=== PATIENT | male | born 1950 | race Caucasian/White ===

== ENCOUNTER → 2017-06-16 | Outpatient (CLI) | payer OTHER ==
[~2017-06-16] MED LIST: ACET325T96 PO; ASPEC81 PO; CLR10 PO; FLUT0.15; NTRGSL4 SL; PLV75 PO; PRT40 PO; TPRSR50 PO
[2017-06-16 09:50] LABS: CHOLESTEROL/HDL RATIO 3.4
== END | disposition home or self-care (01) ==
LOC: C.LAB1850 07:06
PROVIDERS: ATTEND Physician Assistant Medical
DX: I25.10 Atherosclerotic heart disease of native coronary artery without angina pectoris (principal)

== ENCOUNTER 2018-03-14 10:41 | Emergency (ER) | payer OTHER ==
[~2018-03-14] VITALS: Ht 170.2 cm; Wt 80.0 kg
[~2018-03-14 10:41] MED LIST changes: +ACET-1693 PO; -ACET325T96 PO; -ASPEC81 PO; +ASPI-320 PO; +PANT1TAB4 PO; -PRT40 PO
[2018-03-14 10:47] VITALS: TEMP 36.7; Ht 170.2 cm; Wt 80.0 kg
[2018-03-14 11:11] VITALS: O2SAT 96
[2018-03-14] MEDS ORDERED: MECLIZINE HCL 25 MG TAB PO STA (11:25)
[2018-03-14] MEDS ORDERED: ONDANSETRON INJ 2 MG/ML 2 ML VIAL IV STA (11:28)
[2018-03-14] MEDS ORDERED: SODIUM CHLORIDE 0.9% 500ML 500 ML IV STA (11:28)
[2018-03-14 11:31] LABS: BASO % 0.7 %; BASO ABS # 0.04 K/uL (0-0.2); EOS % 1.6 %; HEMOGLOBIN 14.5 g/dL (14.0-18.0); IG# 0.02 K/uL (0.00-0.02); LYMPH % 29.6 %; LYMPH ABS # 1.82 K/uL (1.2-3.4); MEAN CELL VOLUME 95.1 fL (80-100); MEAN CORPUSCULAR HEMOGLOBIN 32.1 pg (25-34); MEAN CORPUSCULAR HGB CONC 33.7 g/dl (32-36); MEAN PLATELET VOLUME 9.7 fL (7.4-10.4); MONO % 8.5 %; MONO ABS # 0.52 K/uL (0.11-0.59); NEUT % 59.3 %; NEUT ABS # 3.64 K/uL (1.4-6.5); PLATELET COUNT 227 K/uL (130-400); RED CELL DISTRIBUTION WIDTH CV 12.5 % (11.5-14.5); RED CELL DISTRIBUTION WIDTH SD 42.8 fL (36.4-46.3); WHITE BLOOD COUNT 6.14 K/uL (4.8-10.8)
--- NOTE | 2018-03-14 11:32 | EMERGENCY ROOM VISIT NOTE ---
History Report prepared by Gerhard: Gisella Ibarra Under the Supervision of: Dr. Elda Wright M.D. First contact with patient: 11:20 Chief Complaint: DIZZY Stated Complaint: DIZZINESS Nursing Triage Summary: pt recently hme from vacation, went back to work had brief cp, heart "fluttering and dizziness. called pcp, med changes done.today coming in to visit someone and had severe dizziness with nausea. pt worse with any position chnge, ears ringing. when standing became "hot" with increased dizziness and nausea. skin pale and clammy History of Present Illness The patient is a 67 year old male who presents to the Emergency Room with complaints of dizziness beginning shortly prior to arrival. The patient states that he felt like the car was still moving when it had stopped. The patient also reports feeling light-headed. He reports that he was here in the hospital to visit family and that he had to hold onto the railing walking down the hallway. Per , the patient's face was also red. The patient reports having some chest pain and nausea but denies being short of breath. He states that he called off of work 5 days ago because he was having palpitations. Per , the patient had a heart attack 4 years ago. The patient denies a history of atrial fibrillation. The patient states that his Metoprolol was increased 2 days ago from 1 tablet to 1.5 tablets as this was thought to help with the patient's palpitations. He states that he took all of his medications this morning and states that he ate breakfast. 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 His states that their daughter has vertigo. Per , the patient's blood pressure is usually not this high. The patient reports that he has not had his blood pressure checked in several months. Source of History: patient, spouse/significant other Onset: shortly prior to arrival Position: other (generalized) Quality: other (dizziness) Associated Symptoms: + chest pain, + nausea, + weakness (light-headed), No SOB Review of Systems See HPI for pertinent positives & negatives. A total of 10 systems reviewed and were otherwise negative. Past Medical & Surgical Medical Problems: (1) Avulsion of skin of finger (2) Diverticulitis Colon (W/O Ment Of Hemorrhage) (3) Diverticulosis Colon (W/O Ment Of Hemorrhage) (4) Esophageal Reflux (5) Meniscus tear (6) Palpitations (7) STEMI (ST elevation myocardial infarction) Family History Heart disease Vertigo Social History Smoking Status: Former Smoker Marital Status: Housing Status: lives with significant other Occupation Status: employed Current/Historical Medications Scheduled Aspirin (Aspirin EC Low Dose), 81 MG PO QAM Clopidogrel (Plavix), 75 MG PO DAILY Fluticasone Propionate (Nasal) (Flonase Allergy Relief), 2 SPRAYS NA HS Metoprolol Succinate (Toprol Xl), 75 MG PO DAILY Pantoprazole (Pantoprazole Sodium), 40 MG PO DAILY Scheduled PRN Acetaminophen Tab (Tylenol), 325 MG PO Q8H PRN for Pain or Fever Nitroglycerin (Nitrostat), 0.4 MG SL UD PRN for Chest Pain Allergies Coded Allergies: Sulfa Antibiotics (Verified Allergy, Intermediate, RASH, 03/14/18) Physical Exam Vital Signs Date Time Temp Pulse Resp B/P (MAP) Pulse Ox O2 Delivery O2 Flow Rate FiO2 03/14/18 15:34 50 19 134/78 99 Room Air 03/14/18 13:55 152/73 03/14/18 13:15 52 03/14/18 13:11 48 14 99 03/14/18 12:41 49 16 99 03/14/18 12:11 55 12 96 03/14/18 12:07 56 19 138/85 97 03/14/18 12:05 138/85 03/14/18 11:41 61 16 96 03/14/18 11:26 174/109 03/14/18 11:11 96 Room Air 03/14/18 11:11 64 148/102 67 171/116 65 176/103 03/14/18 11:11 61 96 03/14/18 11:05 176/103 03/14/18 11:04 171/116 03/14/18 11:03 148/102 03/14/18 11:01 58 03/14/18 10:47 36.7 69 18 163/96 97 Room Air Physical Exam Vital signs reviewed. General: Well-appearing male, in no significant distress. HEENT: No scleral icterus, PERRLA, neck supple. Atraumatic. Horizontal nystagmus. Cardiovascular: Regular rate and rhythm, no extra sounds. Pulmonary: Clear to auscultation bilaterally, normal work of breathing. Abdomen: Soft, nontender, nondistended, positive bowel sounds. Musculoskeletal: Atraumatic, no peripheral edema. Neurologic: Patient awake alert and oriented x 3, full strength in all 4 extremities. Cranial nerves 2 through 12 grossly intact. Skin: Warm, dry, no rash Medical Decision & Procedures ER Provider Diagnostic Interpretation: Radiology results as stated below per my review and radiologist interpretation: CHEST ONE VIEW PORTABLE CLINICAL HISTORY: Dizziness. COMPARISON STUDY: Chest radiograph June 25, 2015. FINDINGS: Patient is rotated. No pneumothorax or pleural effusion is noted. There is no consolidation or evidence for pulmonary edema. Cardiac size is within normal limits. IMPRESSION: No acute cardiopulmonary findings. Electronically signed by: Terry Hernandez M.D. 03/14/2018 11:52 AM Dictated Date/Time: 03/14/2018 11:[address] OF THE HEAD WITHOUT CONTRAST CLINICAL HISTORY: Dizziness. Difficulty ambulating. COMPARISON STUDY: No previous studies for comparison. CT DOSE: 537.48 mGy.cm TECHNIQUE: Helical axial images of the head were obtained without IV contrast. Automated exposure control was utilized for the study. A dose lowering technique was utilized adhering to the principles of ALARA. FINDINGS: No acute intracranial hemorrhage, midline shift or mass effect is present. Brain volume is normal. Ventricular system is normal. The basilar cisterns are patent. There are no extra-axial collections. Boyd-white differentiation is maintained. There are no findings to suggest acute dural sinus thrombosis or acute territorial infarct. There are no significant calvarial abnormalities. Visualized portions of the mastoid air cells and sinuses are clear. IMPRESSION: No acute intracranial findings. Electronically signed by: Terry Hernandez M.D. 03/14/2018 1:46 PM Dictated Date/Time: 03/14/2018 1:44 PM Laboratory Results 03/14/18 11:15 Red Blood Count 4.52, Mean Corpuscular Volume 95.1, Mean Corpuscular Hemoglobin 32.1, Mean Corpuscular Hemoglobin Concent 33.7, Mean Platelet Volume 9.7, Neutrophils (%) (Auto) 59.3, Lymphocytes (%) (Auto) 29.6, Monocytes (%) (Auto) 8.5, Eosinophils (%) (Auto) 1.6, Basophils (%) (Auto) 0.7, Neutrophils # (Auto) 3.64, Lymphocytes # (Auto) 1.82, Monocytes # (Auto) 0.52, Eosinophils # (Auto) 0.10, Basophils # (Auto) 0.04 03/14/18 11:15 Test 03/14/18 11:10 03/14/18 11:15 03/14/18 11:27 03/14/18 13:50 Bedside Glucose 125 mg/dl (70-99) White Blood Count 6.14 K/uL (4.8-10.8) Red Blood Count 4.52 M/uL (4.7-6.1) Hemoglobin 14.5 g/dL (14.0-18.0) Hematocrit 43.0 % (42-52) Mean Corpuscular Volume 95.1 fL (80-100) Mean Corpuscular Hemoglobin 32.1 pg (25-34) Mean Corpuscular Hemoglobin Concent 33.7 g/dl (32-36) Platelet Count 227 K/uL (130-400) Mean Platelet Volume 9.7 fL (7.4-10.4) Neutrophils (%) (Auto) 59.3 % Lymphocytes (%) (Auto) 29.6 % Monocytes (%) (Auto) 8.5 % Eosinophils (%) (Auto) 1.6 % Basophils (%) (Auto) 0.7 % Neutrophils # (Auto) 3.64 K/uL (1.4-6.5) Lymphocytes # (Auto) 1.82 K/uL (1.2-3.4) Monocytes # (Auto) 0.52 K/uL (0.11-0.59) Eosinophils # (Auto) 0.10 K/uL (0-0.5) Basophils # (Auto) 0.04 K/uL (0-0.2) RDW Standard Deviation 42.8 fL (36.4-46.3) RDW Coefficient of Variation 12.5 % (11.5-14.5) Immature Granulocyte % (Auto) 0.3 % Immature Granulocyte # (Auto) 0.02 K/uL (0.00-0.02) Anion Gap 8.0 mmol/L (3-11) Est Creatinine Clear Calc Drug Dose 97.0 ml/min Estimated GFR () 110.4 Estimated GFR (Non- 95.2 BUN/Creatinine Ratio 16.9 (10-20) Calcium Level 8.6 mg/dl (8.5-10.1) Magnesium Level 2.3 mg/dl (1.8-2.4) Total Bilirubin 0.7 mg/dl (0.2-1) Aspartate Amino Transf (AST/SGOT) 24 U/L (15-37) Alanine Aminotransferase (ALT/SGPT) 25 U/L (12-78) Alkaline Phosphatase 102 U/L (45-117) Total Creatine Kinase 147 U/L (39-308) Creatine Kinase MB 2.8 ng/ml (0.5-3.6) Creatine Kinase MB Ratio 1.9 (0-3.0) Total Protein 7.3 gm/dl (6.4-8.2) Albumin 3.8 gm/dl (3.4-5.0) Globulin 3.5 gm/dl (2.5-4.0) Albumin/Globulin Ratio 1.1 (0.9-2) Thyroid Stimulating Hormone (TSH) 0.901 uIu/ml (0.300-4.500) Bedside Troponin I < 0.030 ng/ml (0-0.045) Urine Color YELLOW Urine Appearance CLEAR (CLEAR) Urine pH 5.5 (4.5-7.5) Urine Specific [place] 1.019 (1.000-1.030) Urine Protein NEG (NEG) Urine Glucose (UA) NEG (NEG) Urine Ketones NEG (NEG) Urine Occult Blood NEG (NEG) Urine Nitrite NEG (NEG) Urine Bilirubin NEG (NEG) Urine Urobilinogen NEG (NEG) Urine Leukocyte Esterase NEG (NEG) Urine WBC (Auto) 1-5 /hpf (0-5) Urine RBC (Auto) 0-4 /hpf (0-4) Urine Hyaline Casts (Auto) 1-5 /lpf (0-5) Urine Epithelial Cells (Auto) 10-20 /lpf (0-5) Urine Bacteria (Auto) NEG (NEG) Laboratory results per my review. Medications Administered Medications (Trade) Dose Ordered Sig/Ildefonso Route Start Time Stop Time Status Last Admin Dose Admin Meclizine HCl (Antivert Tab) 25 mg NOW STAT PO 03/14/18 11:25 03/14/18 11:28 DC 03/14/18 12:05 25 MG Ondansetron HCl (Zofran Inj) 4 mg NOW STAT IV 03/14/18 11:28 8/12/18 11:29 DC 03/14/18 12:05 4 MG Sodium Chloride 500 ml @ 999 mls/hr Q31M STAT IV 03/14/18 11:28 03/14/18 11:58 DC 03/14/18 12:05 999 MLS/HR Meclizine HCl (Antivert 25MG Home Pack) 1 homepack UD ONCE PO 03/14/18 15:15 03/14/18 15:16 DC 03/14/18 15:33 1 HOMEPACK ECG Per My Interpretation Indication: chest pain Rate (beats per minute): 61 Rhythm: normal sinus Findings: LAFB, PVC, RBBB, no acute ischemic change, other (previous inferior infarct) ED Course 1123: Past medical records reviewed. The patient was evaluated in room C12B. A complete history and physical examination was performed. 1435: I updated the patient on his results. 1505: Upon reevaluation, the patient appeared to have improvement of his symptoms. I discussed findings with him. He verbalized agreement of the treatment plan. He was discharged home. Medical Decision Differential diagnosis: Etiologies such as benign positional vertigo, dehydration, hypovolemia, anemia, tumor, infection, hypoglycemia, electrolyte abnormalities, cardiac sources, intracerebral event, toxicologic, neurologic, as well as others were entertained. This patient was evaluated and appeared to be in no significant distress. IV access was obtained and laboratory work was drawn. Patient was given meclizine 25 mg p.o. Zofran 4 mg IV and IV hydration. Chest x-ray was performed and reveals no evidence of acute abnormality. CT scan of the head was performed and is negative for acute intracranial abnormality. Patient was observed for several hours in the emergency department. He was feeling much improved. He was discharged with a home pack for meclizine. He was advised to monitor his blood pressure and follow-up with his PCP regarding the vertigo and hypertension. He will return to the ER for worsening of symptoms or any medical concerns. Medication Reconcilliation Current Medication List: was personally reviewed by me Blood Pressure Screening Patient's blood pressure: Elevated blood pressure Blood pressure disposition: Referred to PCP Impression Primary Impression: Benign positional vertigo Scribe Attestation The scribe's documentation has been prepared under my direction and personally reviewed by me in its entirety. I confirm that the note above accurately reflects all work, treatment, procedures, and medical decision making performed by me. Departure Information Dispostion Home / Self-Care Referrals Zion Olivares M.D. (PCP) Nandini Temple M.D. Forms HOME CARE DOCUMENTATION FORM, IMPORTANT VISIT INFORMATION Patient Instructions My [facility], Vertigo Paroxysmal Positional Additional Instructions Diagnosis: Benign positional vertigo Please drink plenty of clear fluids. Meclizine 25 mg every 8 hours as needed for vertiginous symptoms. Monitor your blood pressure. Follow-up with your primary care physician within the next week for reevaluation of your symptoms and blood pressure recheck. Return to the emergency department for worsening of symptoms or any medical concerns.
--- NOTE | 2018-03-14 11:53 | DIAGNOSTIC IMAGING REPORT ---
CHEST ONE VIEW PORTABLE CLINICAL HISTORY: Dizziness. COMPARISON STUDY: Chest radiograph June 25, 2015. FINDINGS: Patient is rotated. No pneumothorax or pleural effusion is noted. There is no consolidation or evidence for pulmonary edema. Cardiac size is within normal limits. IMPRESSION: No acute cardiopulmonary findings. Electronically signed by: Terry Hernandez M.D. 03/14/2018 11:52 AM Dictated Date/Time: 03/14/2018 11:51 AM
[2018-03-14 11:59] LABS: ALBUMIN 3.8 gm/dl (3.4-5.0); CALCIUM 8.6 mg/dl (8.5-10.1); CKMB 2.8 ng/ml (0.5-3.6); CREATININE 0.77 mg/dl (0.60-1.40); POTASSIUM 3.8 mmol/L (3.5-5.1); TOTAL PROTEIN 7.3 gm/dl (6.4-8.2)
[2018-03-14] MEDS ORDERED: CLOP1TAB15 PO (12:02)
[2018-03-14] MEDS ORDERED: METO-217 PO (12:02)
--- NOTE | 2018-03-14 13:47 | DIAGNOSTIC IMAGING REPORT ---
CT OF THE HEAD WITHOUT CONTRAST CLINICAL HISTORY: Dizziness. Difficulty ambulating. COMPARISON STUDY: No previous studies for comparison. CT DOSE: 537.48 mGy.cm TECHNIQUE: Helical axial images of the head were obtained without IV contrast. Automated exposure control was utilized for the study. A dose lowering technique was utilized adhering to the principles of ALARA. FINDINGS: No acute intracranial hemorrhage, midline shift or mass effect is present. Brain volume is normal. Ventricular system is normal. The basilar cisterns are patent. There are no extra-axial collections. Boyd-white differentiation is maintained. There are no findings to suggest acute dural sinus thrombosis or acute territorial infarct. There are no significant calvarial abnormalities. Visualized portions of the mastoid air cells and sinuses are clear. IMPRESSION: No acute intracranial findings. Electronically signed by: Terry Hernandez M.D. 03/14/2018 1:46 PM Dictated Date/Time: 03/14/2018 1:44 PM
[2018-03-14] MEDS ORDERED: MECLIZINE HCL 25MG HOME PACK PO ONE (15:15)
[2018-03-14 15:34] VITALS: BP 134/78; PULSE 50; O2SAT 99
== END 2018-03-14 15:36 | disposition home or self-care (01) ==
LOC: C.EDB 10:42 → C.EDC 15:36
DX: H81.10 Benign paroxysmal vertigo, unspecified ear (principal); K57.92 Diverticulitis of intestine, part unspecified, without perforation or abscess without bleeding; K21.9 Gastro-esophageal reflux disease without esophagitis; I21.3 ST elevation (STEMI) myocardial infarction of unspecified site; Z87.891 Personal history of nicotine dependence; Z88.2 Allergy status to sulfonamides

== ENCOUNTER 2021-10-15 10:55 | Inpatient (IN) ==
[2021-10-15] MEDS ORDERED: NITROGLYCERIN SL 0.4 MG/TAB TAB SL PRN ×2 (11:37→16:36)
[2021-10-15] MEDS ORDERED: ASPIRIN CHEW 324 MG PO STA (11:37)
[2021-10-15 11:46] LABS: Basophils # (auto) 0.03 K/uL (0-0.2); Basophils % (auto) 0.4 %; Eosinophils # (auto) 0.06 K/uL (0-0.5); Eosinophils % (auto) 0.8 %; Hematocrit (blood only) 45.1 % (42-52); Hemoglobin 15.4 g/dL (14.0-18.0); Immature Granulocytes # (auto) 0.01 K/uL (0.00-0.02); Immature Granulocytes % (auto) 0.1 %; Lymphocytes # (auto) 1.94 K/uL (1.2-3.4); Mean Corpuscular Hemoglobin 32.6 pg (25-34); Mean Corpuscular Hgb Conc 34.1 g/dL (32-36); Mean Corpuscular Volume 95.3 fL (80-100); Mean Platelet Volume 10.1 fL (7.4-10.4); Monocytes # (auto) 0.61 K/uL (0.11-0.59); Monocytes % (auto) 7.9 %; Neutrophils % (auto) 65.8 %; Platelet Count 252 K/uL (130-400); RDW Coefficient of Variation 12.6 % (11.5-14.5); RDW Standard Deviation 43.7 fL (36.4-46.3); Red Blood Count 4.73 M/uL (4.7-6.1); White Blood Count 7.75 K/uL (4.8-10.8)
[2021-10-15 12:18] LABS: Troponin I 0.06 ng/ml (0-0.04)
--- NOTE | 2021-10-15 12:19 | XRay Report ---
XR chest 1V portable HISTORY: 71 years-old Male Chest Pain . Acute atypical chest pain COMPARISON: Chest radiograph 03/14/2019 TECHNIQUE: Portable AP view of the chest FINDINGS: Cardiomediastinal and hilar silhouettes are within normal limits. No pneumothorax, pleural effusion, airspace consolidation or overt pulmonary edema. The bones of the chest appear grossly intact. Mid th oracic levoscoliosis. IMPRESSION: No acute process. ACT 112: Negative or not required by law. The above report was generated using voice recognition software. It may contain grammatical, syntax o r spelling errors. Electronically signed by: Osmel Mckeon M.D. 10/15/2021 12:17 PM
[2021-10-15 12:20] LABS: Albumin Globulin Ratio 1.6 (0.9-2); Albumin Level 4.5 gm/dl (3.4-5.0); BUN Creatinine Ratio 18.7 (10-20); Bilirubin,Total 0.8 mg/dl (0.2-1.0); Calcium 9.5 mg/dl (8.5-10.1); Creatinine Clr Calc Pharmacy 86.9 ml/min; Est GFR (African American) 108.5 ml/min; Est GFR (Non-African American) 93.6 ml/min; Globulin 2.9 gm/dl (2.5-4.0); Total Protein 7.4 gm/dl (6.0-8.3)
--- NOTE | 2021-10-15 13:19 | History & Physical Report ---
Date of Service October 15, 2021 Assessment & Plan (1) Chest pain: Plan: - Suspect this is unstable angina, is new for patient and has been on and off for 2 weeks, only with exertion, is alleviated with rest. He has RBBB on EKG which was also seen on EKG in 2018, no ST segment changes, troponin elevated at .06. He currently reports a sense of congestion in his chest, rated 1/10. - Received ASA in ED. Nitropaste ordered PRN if patient becomes symptomatic. - Consult cardiology, appreciate their recommendations. - Continue to trend troponin Q6h. - Will start low dose Heparin with bolus. - Last echo was in 2013, will order this. (2) CAD (coronary artery disease): Plan: - s/p acute inferior and posterior lateral PA in 2013, 3 SHOBHA in RCA. - Continue statin, DAPT (plavix + ASA), metoprolol, amlodipine. (3) Hyperlipidemia: Plan: - Continue pravastatin 5 mg daily and ezetimibe 10 mg daily. (4) Hypertension, essential: Plan: - Continue amlodipine 5 mg daily and metoprolol succ 100 mg daily. (5) Urinary retention due to benign prostatic hyperplasia: Plan: - Continue Flomax .4 mg in evening. (6) Impaired fasting glucose: Plan: - Glucose 113 today on BMP, patient without diagnosis of diabetes. Last A1c in December 2020 = 5.4. Will recheck in AM. - Can consider accucheks ACHS, can consider SSI if sugars consistently elevated. (7) GERD without esophagitis: Plan: - Continue protonix 40 mg daily. Plan: - Admit to [facility] with tele. - SCDs, Lovenox for DVT ppx. - DNR/DNI. History of Present Illness Chief Complaint: chest pain with SOB Primary Care Provider: Nandini Temple MD Patient 71 y/o M with past medical history of CAD s/p PA in 2013 with SHOBHA, hypertension, hyperlipidemia, and hiatal hernia who presents today at the referral of his PCP with several episodes of chest pain and shortness of breath over the past month. He and his walk 2.5 miles several times a week, however for the past month, he notes he has been more short of breath than usual with these walks. He initially attributed this to air quality, as his also experienced similar symptoms, however he has since noticed a decline in energy levels. He also reports feeling slightly short of breath while walking up his stairs this morning. Additionally, over the past two weeks, he has begun experiencing episodes of generalized chest pain with activity, specifically noting it happened once while walking and was associated with chest pain across his whole chest and abdomen, associated with b/l numbness in both arms as well as nausea. It was alleviated with rest, and he was able to continue his walk without further symptoms. Last week, during a snow storm, he was shoveling snow and experienced an episode of chest pain 10 minutes into shoveling, similar to the one listed above. He chewed a baby aspirin and rested for about 20 minutes before continuing to shovel, symptom free. He states this chest pain does not feel similar to the pain he experienced in 2013 when he had an PA, but is concerned as he does not ever have chest pain at rest or activity, and also typically is very active and is bothered by his fatigue. His chest pain does not radiate to neck/jaw/back, is not affected by position, is not exacerbated with respirations, is not associated with meals. He denies fever/chills, myalgias, palpitations, dizziness, SOB at rest, cough, vomiting, change in bowel movements, injury to chest wall, or edema. He is currently without chest pain. Allergies Allergy/AdvReac Type Severity Reaction Status Date / Time Sulfa (Sulfonamide Allergy Intermediate RASH Verified 10/15/21 13:01 Antibiotics) Home Medications Medication Instructions Recorded Confirmed Type nitroglycerin 0.4 mg sublingual 0.4 mg SL Q5M PRN #20 tab 03/24/19 10/15/21 Rx tablet amlodipine 5 mg tablet 5 mg PO QAM 10/15/21 10/15/21 History aspirin 81 mg tablet,delayed 81 mg PO QAM 10/15/21 10/15/21 History release cholecalciferol (vitamin D3) 50 50 mcg PO HS 10/15/21 10/15/21 History mcg (2,000 unit) capsule (Vitamin D3) clopidogrel 75 mg tablet (Plavix) 75 mg PO QAM 10/15/21 10/15/21 History coenzyme Q10 100 mg capsule 100 mg PO QDL 10/15/21 10/15/21 History (CoQ-10) ezetimibe 10 mg tablet 10 mg PO QAM 10/15/21 10/15/21 History metoprolol succinate 100 mg 100 mg PO QAM 10/15/21 10/15/21 History tablet,extended release 24 hr multivitamin 1 tab PO QAM 10/15/21 10/15/21 History pantoprazole 40 mg tablet,delayed 40 mg PO QAM 10/15/21 10/15/21 History release pravastatin 10 mg tablet 5 mg PO QDL 10/15/21 10/15/21 History tamsulosin 0.4 mg capsule (Flomax) 0.4 mg PO HS 10/15/21 10/15/21 History Past Med/Surg History Medical History Avulsion of skin of finger CAD (coronary artery disease) Diverticulosis GERD without esophagitis HTN (hypertension), benign Impaired fasting glucose Insomnia Iron deficiency anemia Meniscus tear Myocardial infarction Palpitations Plantar fasciitis Pneumonia RBBB Routine health maintenance STEMI (ST elevation myocardial infarction) Surgical History (Updated 10/15/21 @ 17:52 by David Jones MD) History of colon surgery Stented coronary artery Family History Mother Hypertension Grandfather Heart disease Father Heart disease Myocardial infarction Grandfather (Paternal) , 49 Myocardial infarction, Onset Age: 49 Uncle Heart disease Denies family history of Ovarian cancer Prostate cancer Breast cancer Colorectal cancer Social History Smoking Status: Never smoker Second Hand Exposure: No; Do You Dip or Chew Tobacco: No; Tobacco Cessation Education Requested by Patient: No Hx Alcohol Use: Yes Alcohol type: beer Alcohol Intake Frequency: Monthly or Less Hx Substance Use: No Preferred Language: Croatian Harnessmaker Required: No Beliefs That Will Affect Care: None marital status: Current Living Situation: Spouse current occupational status: retired Other Information That Helps Us Care for You: No Feels Safe at Home: Yes Safety Concerns: Feels Safe At This Time caffeine: Yes (1 cup of coffee daily ) Dental Care, Regularly: Yes Physical Activity Frequency: Daily Physical Activity Frequency Comment: Walking 2 1/2 miles daily Seatbelt Use: always Sunscreen Use: Yes Assistive Devices: None Review of Systems Review of Systems: Constitutional: Reports generalized fatigue for the past month; No fever, sweats or chills Eyes: No diplopia, no worsening or blurred vision ENT: normal hearing, no trouble swallowing Respiratory: reports intermittent episodes of SOB with activity; No cough, sputum, dyspnea at rest Cardiovascular: reports 2-3 episodes of chest pain with exertion that radiates across whole chest and into abdomen, relieved with rest, without diaphoresis, palpitations, syncope, dizziness Abdomen: Nausea associated with chest pain; no vomiting, diarrhea or constipation Musculoskeletal: No joint pain, calf pain, swelling Neurologic: No weakness, numbness/tingling, or balance problems Psychiatric: No anxiety or depression Skin: No rash or itch Physical Exam Physical Exam: General: awake, alert, no apparent distress Head: Normocephalic, atraumatic ENT: PERRL, EOMI, no pharyngeal exudate, mucous membranes moist Chest: Clear to auscultation, on room air, no adventitious breath sounds Cardiac: Regular rate and rhythm, no murmur, no JVD, normal peripheral pulses, good capillary refill Abdominal: NABS x 4 quadrants, soft, nontender to palpation, no rebound, guarding or tenderness Extremities: Normal inspection, no peripheral edema or erythema, calfs nontender to palpation Psych: Normal mood and affect Neuro: AAO x 3, strength intact bilaterally and rated 5/5, no motor deficits, speech is clear, no peripheral sensory deficits Skin: no rash or erythema Results & Data Results & Data ([facility]) Vital Signs (Past 12 Hours) Vital Signs Temp Pulse Pulse Resp BP BP Pulse Ox 10/15/21 13:00 60 12 142/75 H 98 10/15/21 12:53 96 10/15/21 11:37 63 13 100 10/15/21 11:10 36.5 C 68 18 182/89 H 95 Laboratory Results Abnormal lab results 10/15/21 10/15/21 Range/Units 11:37 11:37 [place] # (Auto) 0.61 H (0.11-0.59) K/uL Glucose 113 H (70-99(Fasting)) mg/dl Troponin I 0.06 H* (0-0.04) ng/ml Diagnostic Findings Chest X-Ray 10/15/21 11:37 XR chest 1V portable HISTORY: 71 years-old Male Chest Pain . Acute atypical chest pain COMPARISON: Chest radiograph 03/14/2019 TECHNIQUE: Portable AP view of the chest FINDINGS: Cardiomediastinal and hilar silhouettes are within normal limits. No pneumothorax, pleural effusion, airspace consolidation or overt pulmonary edema. The bones of the chest appear grossly intact. Mid thoracic levoscoliosis. IMPRESSION: No acute process. ECG Additional Comments: Normal sinus rhythm Indeterminate axis Right bundle branch block Abnormal ECG When compared with ECG of 14-MAR-2018 11:02, Premature ventricular complexes are no longer Present Criteria for Inferior infarct are no longer Present RBBB also present on EKG from 2018. Code Status & VTE Plan Code Status DNR/DNI VTE Prophylaxis Plan VTE Prophylaxis will be ordered: Yes Supervising Physician Co-Signing Physician Notes Attending Attestation & Admission Note: Pt seen/examined, chart reviewed, care plan d/w TAMRA Zuniga. I agree w/ the cody components of her documentation. Pleasant 71yo male s/p acute PA in 2013 2nd occluded RCA. Underwent SHOBHA x 3 at that time. No stress test since as he had been asymptomatic from cardiac standpoint. Multiple episodes of chest pain in the last 1-2 weeks. Exertional in nature. Becoming more frequent of late and less activity is leading to the symptoms. Upon presentation today his troponin was mildly elevated. no chest pain or dyspnea during my assessment. PMH/PSH/allergies/meds/sochx/famhx - reviewed VSS, afebrile gen - NAD, pleasant neck - no JVD heart - RRR, s1 s2, no murmurs lungs - CTA b/l chest - no reproducible chest wall pain to palpation abd - soft NT ND BS+ ext - no edema, pulses 2+ b/l vascular - radial pulses 2+ b/l labs reviewed trop 0.05 (minimally high) EKG - NSR, RBBB (Old), no acute ST changes cxr wnl A/P: 1. chest pain - recurrent - concerning for angina. Cannot exclude unstable angina - symptoms becoming more frequent and being provoked now by mild activity. With his known CAD, symptoms, and +troponin will place on low-dose heparin protocol, tele, and perform serial trops. Formal cards consult with [facility] -- cath in am?? place on topical nitrates scheduled. cont asa/plavix. 2. hyperlipidemia - last LDL in 2020 was <70. cont statin. 3. HTN - cont home meds including beta ani. Teja Goodwin MD PG Care Time/CCT Total # of Minutes Spent Total Time Spent with Patient: Total time spent is greater than 50% in coordination of care (as documented) at patient's floor/unit and/or counseling patient: Coding Level of Care Code 09839 Initial Inpt Care Lvl 3 Diagnoses Chest pain R07.9 CAD (coronary artery disease) I25.10 Hyperlipidemia E78.5 Hypertension, essential I10 Urinary retention due to benign prostatic hyperplasia N40.1; R33.8 Impaired fasting glucose R73.01 GERD without esophagitis K21.9
[2021-10-15] MEDS ORDERED: Heparin IV Adult Wt-Based Low-Dose WITH Bolus Protocol STA (14:23)
[2021-10-15] MEDS ORDERED: HEPARIN SOD (PORCINE) 1000 UNIT/ML IV ONE (14:38)
[2021-10-15] MEDS: HEPARIN SODIUM/DEXTROSE 25,000 UNITS/500 ML BAG IV SCH (14:58)
[2021-10-15 15:06] LABS: Partial Thromboplastin Ratio 0.9; Partial Thromboplastin Time 24.8 Seconds (21.0-31.0)
--- NOTE | 2021-10-15 15:56 | Emergency Department Note ---
ED Provider Note CHIEF COMPLAINT: [] HISTORY OF PRESENT ILLNESS: This [] patient presents to the emergency department [] REVIEW OF SYSTEMS: A review of systems was performed with positives and pertinent negatives listed in the history of present illness. 10 systems were reviewed and are otherwise negative. ALLERGIES: see below MEDICATIONS: see below PMH: see below SOCIAL HISTORY: see below DDx: [] PHYSICAL EXAM: Vital signs reviewed. General: Well-appearing, in no significant distress. HEENT: No scleral icterus, PERRLA, neck supple. Atraumatic. Cardiovascular: Regular rate and rhythm, no extra sounds. Pulmonary: Clear to auscultation bilaterally, normal work of breathing. Abdomen: Soft, nontender, nondistended, positive bowel sounds. Musculoskeletal: Atraumatic, no peripheral edema. Neurologic: Patient awake alert and oriented x 3, speech is clear Skin: Warm, dry, no rash EMERGENCY DEPARTMENT COURSE/MDM: [] MONITORING: An order for cardiac monitoring was placed and the patient is noted to be in a [] at [] beats per minute. RADIOLOGY: EKG: DISPOSITION: Past Med/Surg History Medical History Avulsion of skin of finger Diverticulosis GERD without esophagitis HTN (hypertension), benign Impaired fasting glucose Insomnia Iron deficiency anemia Meniscus tear Myocardial infarction Palpitations Plantar fasciitis Pneumonia RBBB Routine health maintenance STEMI (ST elevation myocardial infarction) Surgical History History of colon surgery Stented coronary artery Family History Mother Hypertension Grandfather Heart disease Father Heart disease Myocardial infarction Grandfather (Paternal) , 49 Myocardial infarction, Onset Age: 49 Uncle Heart disease Denies family history of Ovarian cancer Prostate cancer Breast cancer Colorectal cancer Social History Smoking Status: Never smoker Second Hand Exposure: No; Hx Alcohol Use: Yes Alcohol type: beer Alcohol Intake Frequency: Monthly or Less Hx Substance Use: No Preferred Language: Luxembourger marital status: Current Living Situation: Spouse current occupational status: retired Feels Safe at Home: Yes caffeine: Yes (1 cup of coffee daily ) Dental Care, Regularly: Yes Physical Activity Frequency: Daily Physical Activity Frequency Comment: Walking 2 1/2 miles daily Seatbelt Use: always Sunscreen Use: Yes Allergies Allergies Allergy/AdvReac Type Severity Reaction Status Date / Time Sulfa (Sulfonamide Allergy Intermediate RASH Verified 10/15/21 13:01 Antibiotics) Home Meds Home Medications Medication Instructions Recorded Confirmed amlodipine 5 mg tablet 5 mg PO QAM 10/15/21 10/15/21 aspirin 81 mg tablet,delayed 81 mg PO QAM 10/15/21 10/15/21 release cholecalciferol (vitamin D3) 50 50 mcg PO HS 10/15/21 10/15/21 mcg (2,000 unit) capsule (Vitamin D3) clopidogrel 75 mg tablet (Plavix) 75 mg PO QAM 10/15/21 10/15/21 coenzyme Q10 100 mg capsule 100 mg PO QDL 10/15/21 10/15/21 (CoQ-10) ezetimibe 10 mg tablet 10 mg PO QAM 10/15/21 10/15/21 metoprolol succinate 100 mg 100 mg PO QAM 10/15/21 10/15/21 tablet,extended release 24 hr multivitamin 1 tab PO QAM 10/15/21 10/15/21 pantoprazole 40 mg tablet,delayed 40 mg PO QAM 10/15/21 10/15/21 release pravastatin 10 mg tablet 5 mg PO QDL 10/15/21 10/15/21 tamsulosin 0.4 mg capsule (Flomax) 0.4 mg PO HS 10/15/21 10/15/21 Previous Rx's Medication Instructions Recorded nitroglycerin 0.4 mg sublingual 0.4 mg SL Q5M PRN #20 tab 03/24/19 tablet Results & Data (ED) Vital Signs Vital Signs - 24 hr 10/15/21 11:10 10/15/21 11:37 10/15/21 12:53 Temperature 36.5 C Temperature Source Temporal Artery Scan Pulse Rate 68 Pulse Rate [Apical] 63 Pulse Strength [Apical] Respiratory Rate 18 13 Blood Pressure 182/89 H Blood Pressure [Right Arm] Blood Pressure Mean 120 Blood Pressure Mean [Right Arm] Pulse Oximetry 95 100 96 Oxygen Delivery Method Room Air Room Air Room Air Sepsis Recent Fever Within 48 Hours No Sepsis New/Unexplained Change in Mental Status No Sepsis Action Taken by Nursing No Action Required 10/15/21 13:00 10/15/21 15:02 Temperature Temperature Source Pulse Rate Pulse Rate [Apical] 60 69 Pulse Strength [Apical] Normal Respiratory Rate 12 16 Blood Pressure Blood Pressure [Right Arm] 142/75 H 141/74 H Blood Pressure Mean Blood Pressure Mean [Right Arm] 97 96 Pulse Oximetry 98 96 Oxygen Delivery Method Room Air Sepsis Recent Fever Within 48 Hours Sepsis New/Unexplained Change in Mental Status Sepsis Action Taken by Nursing Laboratory Data Result diagrams: 10/15/21 11:37 10/15/21 11:37 Lab Results 10/15/21 10/15/21 10/15/21 Range/Units 11:37 11:37 11:37 WBC 7.75 (4.8-10.8) K/uL RBC 4.73 (4.7-6.1) M/uL Hgb 15.4 (14.0-18.0) g/dL Hct 45.1 (42-52) % MCV 95.3 (80-100) fL MCH 32.6 (25-34) pg MCHC 34.1 (32-36) g/dL RDW Std Deviation 43.7 (36.4-46.3) fL RDW Coeff of Elly 12.6 (11.5-14.5) % Plt Count 252 (130-400) K/uL MPV 10.1 (7.4-10.4) fL Immature Gran % (Auto) 0.1 % Neut % (Auto) 65.8 % Lymph % (Auto) 25.0 % [place] % (Auto) 7.9 % Eos % (Auto) 0.8 % Baso % (Auto) 0.4 % Neut # (Auto) 5.10 (1.4-6.5) K/uL Lymph # (Auto) 1.94 (1.2-3.4) K/uL [place] # (Auto) 0.61 H (0.11-0.59) K/uL Eos # (Auto) 0.06 (0-0.5) K/uL Baso # (Auto) 0.03 (0-0.2) K/uL Immature Gran # (Auto) 0.01 (0.00-0.02) K/uL APTT 24.8 (21.0-31.0) Seconds PTT Ratio 0.9 Sodium 140 (136-145) mmol/L Potassium 4.0 (3.5-5.1) mmol/L Chloride 106 (98-107) mmol/L Carbon Dioxide 26 (21-32) mmol/L Anion Gap 8 (3-11) BUN 14 (6-23) mg/dl Creatinine 0.75 (0.6-1.4) mg/dl Est Cr Clr Drug Dosing 86.9 ml/min Est GFR ( Amer) 108.5 ml/min Est GFR (Non-Af Amer) 93.6 ml/min BUN/Creatinine Ratio 18.7 (10-20) Glucose 113 H (70-99(Fasting)) mg/dl Calcium 9.5 (8.5-10.1) mg/dl Total Bilirubin 0.8 (0.2-1.0) mg/dl AST 28 (13-39) U/L ALT 22 (7-52) U/L Alkaline Phosphatase 94 (34-104) U/L Troponin I 0.06 H* (0-0.04) ng/ml Total Protein 7.4 (6.0-8.3) gm/dl Albumin 4.5 (3.4-5.0) gm/dl Globulin 2.9 (2.5-4.0) gm/dl Albumin/Globulin Ratio 1.6 (0.9-2) Lipase 43 (11-82) U/L SARS-CoV-2, RNA, NAAT (NEGATIVE) 10/15/21 Range/Units 12:52 WBC (4.8-10.8) K/uL RBC (4.7-6.1) M/uL Hgb (14.0-18.0) g/dL Hct (42-52) % MCV (80-100) fL MCH (25-34) pg MCHC (32-36) g/dL RDW Std Deviation (36.4-46.3) fL RDW Coeff of Elly (11.5-14.5) % Plt Count (130-400) K/uL MPV (7.4-10.4) fL Immature Gran % (Auto) % Neut % (Auto) % Lymph % (Auto) % [place] % (Auto) % Eos % (Auto) % Baso % (Auto) % Neut # (Auto) (1.4-6.5) K/uL Lymph # (Auto) (1.2-3.4) K/uL [place] # (Auto) (0.11-0.59) K/uL Eos # (Auto) (0-0.5) K/uL Baso # (Auto) (0-0.2) K/uL Immature Gran # (Auto) (0.00-0.02) K/uL APTT (21.0-31.0) Seconds PTT Ratio Sodium (136-145) mmol/L Potassium (3.5-5.1) mmol/L Chloride (98-107) mmol/L Carbon Dioxide (21-32) mmol/L Anion Gap (3-11) BUN (6-23) mg/dl Creatinine (0.6-1.4) mg/dl Est Cr Clr Drug Dosing ml/min Est GFR ( Amer) ml/min Est GFR (Non-Af Amer) ml/min BUN/Creatinine Ratio (10-20) Glucose (70-99(Fasting)) mg/dl Calcium (8.5-10.1) mg/dl Total Bilirubin (0.2-1.0) mg/dl AST (13-39) U/L ALT (7-52) U/L Alkaline Phosphatase (34-104) U/L Troponin I (0-0.04) ng/ml Total Protein (6.0-8.3) gm/dl Albumin (3.4-5.0) gm/dl Globulin (2.5-4.0) gm/dl Albumin/Globulin Ratio (0.9-2) Lipase (11-82) U/L SARS-CoV-2, RNA, NAAT NEGATIVE (NEGATIVE) Administered Medications Heparin Sodium/Dextrose (Heparin Sodium/Dextrose) 25,000 units in 500 mls @ 17 mls/hr IV .Q24H [facility]; Protocol Stop: 11/14/21 14:44 Last Admin: 10/15/21 14:58 Dose: 850 units/hr, 17 mls/hr Documented by: [id number] Cosigned by: [id number] Discontinued Medications Aspirin (Aspirin Chew 324 Mg) 324 mg PO NOW STA Stop: 10/15/21 11:38 Last Admin: 10/15/21 11:44 Dose: 324 mg Documented by: [id number] Heparin Sodium (Porcine) (Heparin Sod (Porcine) 1000 Unit/Ml) 4,000 units IV NOW ONE Stop: 10/15/21 14:39 Last Admin: 10/15/21 14:57 Dose: 4,000 units Documented by: [id number] Cosigned by: [id number] Imaging Data Radiologist's Impression: Chest X-Ray 10/15/21 11:37 XR chest 1V portable HISTORY: 71 years-old Male Chest Pain . Acute atypical chest pain COMPARISON: Chest radiograph 03/14/2019 TECHNIQUE: Portable AP view of the chest FINDINGS: Cardiomediastinal and hilar silhouettes are within normal limits. No pneumothorax, pleural effusion, airspace consolidation or overt pulmonary edema. The bones of the chest appear grossly intact. Mid thoracic levoscoliosis. IMPRESSION: No acute process. ACT 112: Negative or not required by law. The above report was generated using voice recognition software. It may contain grammatical, syntax or spelling errors. Electronically signed by: Osmel Mckeon M.D. 10/15/2021 12:17 PM Discharge Plan Visit Data Chief Complaint: Referred by Doctor Stated Complaint: EKG SHOWED BLOCKAGE, DR SENT TO ER ED Provider: Elda Wright Forms Stand Alone Forms: [facility] Prescriptions Prescriptions: No Action nitroglycerin 0.4 mg tablet, sublingual 0.4 mg SL Q5M PRN (Reason: chest pain) Qty: 20 RF: 0 multivitamin Tablet 1 tab PO QAM RF: 0 coenzyme Q10 [CoQ-10] 100 mg Capsule 100 mg PO QDL RF: 0 cholecalciferol (vitamin D3) [Vitamin D3] 50 mcg (2,000 unit) Capsule 50 mcg PO HS RF: 0 metoprolol succinate 100 mg tablet extended release 24 hr 100 mg PO QAM RF: 0 clopidogrel [Plavix] 75 mg tablet 75 mg PO QAM RF: 0 amlodipine 5 mg tablet 5 mg PO QAM RF: 0 aspirin 81 mg tablet,delayed release (DR/EC) 81 mg PO QAM RF: 0 pravastatin 10 mg tablet 5 mg PO QDL RF: 0 tamsulosin [Flomax] 0.4 mg capsule 0.4 mg PO HS RF: 0 pantoprazole 40 mg tablet,delayed release (DR/EC) 40 mg PO QAM RF: 0 ezetimibe 10 mg tablet 10 mg PO QAM RF: 0 Referrals Referrals: Nandini Temple MD [Primary Care Provider] -
[2021-10-15] MEDS ORDERED: ACETAMINOPHEN 325 MG TAB PO PRN (16:36)
[2021-10-15] MEDS ORDERED: POLYETHYLENE (MIRALAX) 17 GM PACK PO PRN (16:36)
[2021-10-15] MEDS ORDERED: ONDANSETRON INJ 2 MG/ML 2 ML VIAL IV PRN (16:36)
[2021-10-15] MEDS: NITROGLYCERIN 2% OINTMENT 30GM TUBE EXT SCH ×2 (16:38→20:50)
--- NOTE | 2021-10-15 17:50 | Cardiology Consultation ---
Date of Consultation October 15, 2021 Assessment & Plan (1) Exertional angina: (2) CAD (coronary artery disease): (3) Stented coronary artery: (4) Hypertension, essential: (5) Hyperlipidemia: (6) Elevated troponin: ASSESSMENT/PLAN: 1. Exertional angina: Symptoms concerning for angina. Troponin slightly elevated. Most recent episode was yesterday. Known history of CAD. Given new onset of symptoms with crescendo characteristics, recommend cardiac catheterization. Risks and benefits were discussed with him in detail. He was made aware that CT surgery is not available at this facility. Catheterization is not emergent. NPO after midnight with plan on pursuing tomorrow. Echo cardiogram recommended. Can continue heparin drip if no contraindication. Continue aspirin and Plavix. Continue beta-ani. Optimize blood pressure control. Reports significant headaches in the past with nitroglycerin. 2. CAD s/p RCA PCI: Plan as above. Continue beta-ani. Continue statin dose as tolerated. Continue calcium channel ani. Continue aspirin 81 mg daily indefinitely. Can continue Plavix. 3. Hypertension: Blood pressure has remained elevated. Given additional dose of amlodipine now. Optimize blood pressure control, especially given presentation concerning for angina. Consider CHRISTINA-inhibitor. 4. Dyslipidemia: Has not tolerated higher doses of statins per patient report. Continue pravastatin and Zetia. Most recent LDL at goal. 5. Elevated troponin: Not diagnostic of ME, but slightly elevated. Plan as above. 6. Disposition: Cardiology will continue to follow. On discharge, follow-up with primary lye machine operator, Dr. Arenas. Patient care communicated with primary hospitalist, Alyson Zuniga. Highly complex medical issues. Thank you for allowing me to participate in the care of your patient. Please call for any other questions or concerns. Sincerely, Marco Jones M.D. History of Present Illness Reason for Consultation: Exertional CP with known CAD Requesting Physician: Alyson Zuniga Attending Physician: Teja Goodwin History of Present Illness Mr. Whitten is a very pleasant 71-year-old gentleman with a history significant for multivessel CAD s/p RCA STEMI (03/30/14) with RCA PCI x 3, hypertension, dyslipidemia, prior tobacco abuse, and ankylosing spondylitis. His primary lye machine operator is Dr. Arenas. On 03/30/2014, he had an acute RCA STEMI and underwent PCI x3 within the RCA. He had residual mid LAD 70-75% stenosis which was treated medically. Echo following ME demonstrated an LVEF of 50% with inferior and inferolateral hypo to akinesis. He has done well since his ME at from a cardiac standpoint, denying any angina until the past 2 weeks when he developed exertional chest discomfort. He walks 2.5 miles per day when weather is reasonable. He has noted that while exerting himself, he is now experiencing central chest discomfort that can radiate to bilateral arms with associated shortness of breath and on occasion diaphoresis. Is less intense than his ME and he describes it as a burning ache. He recalls his ME is being more of a pressure or stabbing sensation that radiated to his right arm. Symptoms have been occurring with more frequency and taking less exertion to bring about his symptoms over the past 2 weeks. Symptoms resolved within 10-20 minutes of rest. Symptoms have also occurred while shoveling snow and his most significant episode was yesterday after walking only 2 [place] the [place] office. He went to his PCP today for evaluation and was referred to the emergency department. He denies such chest pain currently but did have a different type of chest pain after leaning forward in his hospital bed, which quickly resolved. He denies melena, hematochezia, hematuria, or other bleeding. He denies syncope, near-syncope, palpitations, orthopnea, or edema. He has noted increased fatigue recently. He has not tolerated more aggressive statin therapy in the past due to significant myalgias and arthralgias. He is tolerating pravastatin 5 mg daily. Review of systems: As above. Review of systems otherwise negative/unremarkable. Family history: Positive for CAD. Social history: Quit smoking approximately 15 years ago. Occasional alcohol. Lives at home with his , Zena. Had a son and a daughter, however his son approximately 5 years ago. His was present at the bedside. Allergies Allergy/AdvReac Type Severity Reaction Status Date / Time Sulfa (Sulfonamide Allergy Intermediate RASH Verified 10/15/21 13:01 Antibiotics) Home Medications Medication Instructions Recorded Confirmed Type nitroglycerin 0.4 mg sublingual 0.4 mg SL Q5M PRN #20 tab 03/24/19 10/15/21 Rx tablet amlodipine 5 mg tablet 5 mg PO QAM 10/15/21 10/15/21 History aspirin 81 mg tablet,delayed 81 mg PO QAM 10/15/21 10/15/21 History release cholecalciferol (vitamin D3) 50 50 mcg PO HS 10/15/21 10/15/21 History mcg (2,000 unit) capsule (Vitamin D3) clopidogrel 75 mg tablet (Plavix) 75 mg PO QAM 10/15/21 10/15/21 History coenzyme Q10 100 mg capsule 100 mg PO QDL 10/15/21 10/15/21 History (CoQ-10) ezetimibe 10 mg tablet 10 mg PO QAM 10/15/21 10/15/21 History metoprolol succinate 100 mg 100 mg PO QAM 10/15/21 10/15/21 History tablet,extended release 24 hr multivitamin 1 tab PO QAM 10/15/21 10/15/21 History pantoprazole 40 mg tablet,delayed 40 mg PO QAM 10/15/21 10/15/21 History release pravastatin 10 mg tablet 5 mg PO QDL 10/15/21 10/15/21 History tamsulosin 0.4 mg capsule (Flomax) 0.4 mg PO HS 10/15/21 10/15/21 History Patient History Medical History Avulsion of skin of finger CAD (coronary artery disease) Diverticulosis GERD without esophagitis HTN (hypertension), benign Impaired fasting glucose Insomnia Iron deficiency anemia Meniscus tear Myocardial infarction Palpitations Plantar fasciitis Pneumonia RBBB Routine health maintenance STEMI (ST elevation myocardial infarction) Surgical History (Updated 10/15/21 @ 17:52 by David Jones MD) History of colon surgery Stented coronary artery Family History Mother Hypertension Grandfather Heart disease Father Heart disease Myocardial infarction Grandfather (Paternal) , 49 Myocardial infarction, Onset Age: 49 Uncle Heart disease Denies family history of Ovarian cancer Prostate cancer Breast cancer Colorectal cancer Social History Smoking Status: Never smoker Second Hand Exposure: No; Do You Dip or Chew Tobacco: No; Tobacco Cessation Education Requested by Patient: No Hx Alcohol Use: Yes Alcohol type: beer Alcohol Intake Frequency: Monthly or Less Hx Substance Use: No Preferred Language: Icelandic 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 Alert and oriented. HEENT: Anicteric sclera. Neck: No JVD. No bruits. Normal carotid upstrokes bilaterally. Cardiac: PMI was nondisplaced. No ventricular heave. Regular. Normal S1-S2. No murmurs, rubs, or gallops. Pulmonary: Clear to auscultation bilaterally without wheezes, rales, or rhonchi. Abdomen: Soft, nontender, nondistended, with normoactive bowel sounds. No bruits noted. Extremities: 2+ radial pulses bilaterally. 2+ posterior tibialis pulses bilaterally. No edema or cyanosis. Psychiatric: Affect appears appropriate. Chest: Tenderness along the right sternal border, but this pain is different than what he described in HPI. Results & Data ([facility]) Vital Signs (Past 12 Hours) Vital Signs Temp Pulse Pulse Resp BP BP BP 10/15/21 16:36 36.7 C 63 16 155/107 H 10/15/21 15:02 69 16 141/74 H 10/15/21 13:00 60 12 142/75 H 10/15/21 12:53 10/15/21 11:37 63 13 10/15/21 11:10 36.5 C 68 18 182/89 H Pulse Ox 10/15/21 16:36 96 10/15/21 15:02 96 10/15/21 13:00 98 10/15/21 12:53 96 10/15/21 11:37 100 10/15/21 11:10 95 Laboratory Results Laboratory Results - last 24 hr 10/15/21 10/15/21 10/15/21 11:37 11:37 11:37 WBC 7.75 RBC 4.73 Hgb 15.4 Hct 45.1 MCV 95.3 MCH 32.6 MCHC 34.1 RDW Std Deviation 43.7 RDW Coeff of Elly 12.6 Plt Count 252 MPV 10.1 Immature Gran % (Auto) 0.1 Neut % (Auto) 65.8 Lymph % (Auto) 25.0 [place] % (Auto) 7.9 Eos % (Auto) 0.8 Baso % (Auto) 0.4 Neut # (Auto) 5.10 Lymph # (Auto) 1.94 [place] # (Auto) 0.61 H Eos # (Auto) 0.06 Baso # (Auto) 0.03 Immature Gran # (Auto) 0.01 APTT 24.8 PTT Ratio 0.9 Sodium 140 Potassium 4.0 Chloride 106 Carbon Dioxide 26 Anion Gap 8 BUN 14 Creatinine 0.75 Est Cr Clr Drug Dosing 86.9 Est GFR ( Amer) 108.5 Est GFR (Non-Af Amer) 93.6 BUN/Creatinine Ratio 18.7 Glucose 113 H Calcium 9.5 Total Bilirubin 0.8 AST 28 ALT 22 Alkaline Phosphatase 94 Troponin I 0.06 H* Total Protein 7.4 Albumin 4.5 Globulin 2.9 Albumin/Globulin Ratio 1.6 Lipase 43 SARS-CoV-2, RNA, NAAT 10/15/21 10/15/21 12:52 16:51 WBC RBC Hgb Hct MCV MCH MCHC RDW Std Deviation RDW Coeff of Elly Plt Count MPV Immature Gran % (Auto) Neut % (Auto) Lymph % (Auto) [place] % (Auto) Eos % (Auto) Baso % (Auto) Neut # (Auto) Lymph # (Auto) [place] # (Auto) Eos # (Auto) Baso # (Auto) Immature Gran # (Auto) APTT PTT Ratio Sodium Potassium Chloride Carbon Dioxide Anion Gap BUN Creatinine Est Cr Clr Drug Dosing Est GFR ( Amer) Est GFR (Non-Af Amer) BUN/Creatinine Ratio Glucose Calcium Total Bilirubin AST ALT Alkaline Phosphatase Troponin I 0.06 H* Total Protein Albumin Globulin Albumin/Globulin Ratio Lipase SARS-CoV-2, RNA, NAAT NEGATIVE Diagnostic Findings ECG personally reviewed: ECG 10/15/2021 at 11:15 a.m.: Sinus rhythm 60 beats per minute. RBBB. Outpatient Cardiology no reviewed. Chest x-ray 10/15/2021: No acute process per Radiology. Medications Administered Current Inpatient Medications Acetaminophen (Acetaminophen 325 Mg Tab) 650 mg PO Q4H PRN PRN Reason: Pain or Fever Stop: 11/14/21 16:35 Amlodipine Besylate (Amlodipine Besylate 5 Mg Tab) [facility] Stop: 11/15/21 08:59 Aspirin (Aspirin 81 Mg Ectab) 81 mg [facility] Stop: 11/15/21 08:59 Clopidogrel Bisulfate (Clopidogrel Bisulfate 75 Mg Tab) 75 mg PO [facility] [place] Stop: 11/15/21 08:59 Ezetimibe (Ezetimibe 10 Mg Tablet) 10 mg [facility] Stop: 11/15/21 08:59 Heparin Sodium/Dextrose (Heparin Sodium/Dextrose) 25,000 units in 500 mls @ 17 mls/hr IV .Q24H [facility]; Protocol Stop: 11/14/21 14:44 Last Admin: 10/15/21 14:58 Dose: 850 units/hr, 17 mls/hr Documented by: Metoprolol Succinate (Metoprolol Succ 50mg Ext Rel Tab) 100 mg PO [facility] Stop: 11/15/21 08:59 Nitroglycerin (Nitroglycerin 2% Ointment 30gm Tube) 0.5 inch EXT Q6H [facility] Stop: 11/14/21 14:14 Last Admin: 10/15/21 16:38 Dose: Not Given Documented by: Nitroglycerin (Nitroglycerin Sl 0.4 Mg/Tab Tab) 0.4 mg SL Q5M PRN PRN Reason: chest pain Stop: 11/14/21 16:35 Ondansetron HCl (Ondansetron Inj 2 Mg/Ml 2 Ml Vial) 4 mg IV Q6H PRN PRN Reason: Nausea Stop: 11/14/21 16:35 Pantoprazole Sodium (Pantoprazole 40 Mg Tab) 40 mg [facility] Stop: 11/15/21 08:59 Polyethylene Glycol (Polyethylene (Miralax) 17 Gm Pack) 17 gm PO DAILY PRN PRN Reason: Constipation Stop: 11/14/21 16:35 Pravastatin Sodium (Pravastatin Sod 10 Mg Tab) 5 mg PO QDL [facility] Stop: 11/15/21 11:29 Tamsulosin HCl (Tamsulosin Hcl 0.4 Mg Cap) 0.4 mg PO HS [facility] Stop: 11/14/21 20:59 Vitamin D (Cholecalciferol 1,000 Units 25 Mcg Tab) 2,000 units PO HS [facility] Stop: 11/14/21 20:59 PG Care Time/CCT Total # of Minutes Spent Total Time Spent with Patient: Total time spent is greater than 50% in coordination of care (as documented) at patient's floor/unit and/or counseling patient: Coding Level of Care Code 88288 Initial Inpt Care Lvl 3 Diagnoses Exertional angina I20.8 CAD (coronary artery disease) I25.10 Stented coronary artery Z95.5 Hypertension, essential I10 Hyperlipidemia E78.5 Elevated troponin R77.8
[2021-10-15] MEDS ORDERED: amLODIPine BESYLATE 5 MG TAB PO ONE (18:15)
[2021-10-15] MEDS: TAMSULOSIN HCL 0.4 MG CAP PO SCH (20:50)
[2021-10-15] MEDS: CHOLECALCIFEROL 1,000 UNITS 25 MCG TAB PO SCH (20:50)
[2021-10-16 01:03] LABS: Partial Thromboplastin Ratio 1.3; Partial Thromboplastin Time 35.5 Seconds (21.0-31.0)
[2021-10-16] MEDS ORDERED: HEPARIN SOD (PORCINE) 1000 UNIT/ML IV ONE (01:20)
[2021-10-16] MEDS: NITROGLYCERIN 2% OINTMENT 30GM TUBE EXT SCH ×3 (02:38→17:22)
--- NOTE | 2021-10-16 06:34 | Electrocardiogram Report ---
Test Reason : Blood Pressure : / mmHG Vent. Rate : 060 BPM Atrial Rate : 060 BPM P-R Int : 164 ms QRS Dur : 132 ms QT Int : 426 ms P-R-T Axes : 039 -47 027 degrees QTc Int : 426 ms Normal sinus rhythm Indeterminate axis Right bundle branch block Possible Inferior infarct Abnormal ECG When compared with ECG of 14-MAR-2018 11:02, Premature ventricular complexes are no longer Present Confirmed by David Jones ([id number]) on 10/16/2021 6:34:17 AM Referred By: Confirmed By:David Jones
[2021-10-16] MEDS: amLODIPine BESYLATE 5 MG TAB PO SCH (08:33)
[2021-10-16] MEDS: PANTOprazole 40 MG TAB PO SCH (08:33)
[2021-10-16] MEDS: EZETIMIBE 10 MG TABLET PO SCH (08:33)
[2021-10-16] MEDS: ASPIRIN 81 MG ECTAB PO SCH (08:33)
[2021-10-16] MEDS: METOPROLOL SUCC 50MG EXT REL TAB PO SCH (08:33)
[2021-10-16] MEDS: CLOPIDOGREL BISULFATE 75 MG TAB PO SCH (08:33)
[2021-10-16 08:41] LABS: Partial Thromboplastin Ratio 1.9
[2021-10-16 09:07] LABS: Partial Thromboplastin Time 52.4 Seconds (21.0-31.0)
[2021-10-16] MEDS: PRAVASTATIN SOD 10 MG TAB PO SCH (11:52)
--- NOTE | 2021-10-16 12:26 | XCELERA ---
[id number]
[2021-10-16] MEDS ORDERED: MIDAZOLAM HCL 1 MG/ML 2ML VIAL ONE (14:04)
[2021-10-16] MEDS ORDERED: HEPARIN (PORCINE) 1000 UNIT/ML 10 ML (CATH LAB USE ONLY) ONE (14:04)
[2021-10-16] MEDS ORDERED: fentaNYL citrate 100 MCG/2 ML VIAL ONE (14:04)
[2021-10-16] MEDS ORDERED: niCARdipine HCL INJ 2.5 MG/ML 10 ML AMP ONE (14:04)
[2021-10-16] MEDS ORDERED: NITROGLYCERIN/D5W 100MCG/ML 20ML SYR ONE (14:06)
--- NOTE | 2021-10-16 14:44 | Pre Anesthesia Assessment ---
Date of Service October 16, 2021 Pre Sedation Assessment Vital Signs Temp Pulse Pulse Pulse Resp BP BP 10/16/21 14:22 64 17 157/91 H 10/16/21 11:18 36.5 C 65 18 110/67 10/16/21 08:21 62 10/16/21 07:01 36.5 C 76 18 98/71 L 10/16/21 04:31 36.8 C 81 18 96/68 L 10/15/21 23:41 55 L 10/15/21 22:56 36.6 C 61 18 109/66 10/15/21 19:47 36.7 C 69 16 161/85 H 10/15/21 16:36 36.7 C 63 16 155/107 H 10/15/21 15:02 69 16 141/74 H Pulse Ox 10/16/21 14:22 95 10/16/21 11:18 96 10/16/21 08:21 10/16/21 07:01 95 10/16/21 04:31 99 10/15/21 23:41 10/15/21 22:56 95 10/15/21 19:47 95 10/15/21 16:36 96 10/15/21 15:02 96 Cardiovascular + regular rate Respiratory normal respiratory effort, lungs clear to auscultation Pre-Sedation Airway Assessment Smoking Status: Never smoker Short, Thick Neck: No Thyromental Distance: > or= 3.5 Finger Breadths Oral Cavity: + WNL Mallampati Class: III ASA: ASA3 NPO Status Date of Last Intake of Fluids: 10/15/21 Time of Last Intake of Fluids: 19:30 Date of Last Intake of Solid Food: 10/15/21 Time of Last Intake of Solid Foods: 19:30 Procedure Planning Contraindications for Sedation: none Current Medications Reviewed: Yes Notes The planned sedation has been discussed with the patient. Informed Consent was obtained. I have identified the patient, determined the appropriateness of sedation and have assessed the patient immediately prior to the procedure. All medicine(s) and interventions are by my order.
--- NOTE | 2021-10-16 16:00 | Cardiac Catheterization ---
[facility] Data: Floor Renovator Cardiac Status Clinical evaluation leading to the procedure CAD Presenation: Unstable angina Anginal Classification: CCS III Heart Failure: No Cardiogenic Shock within 24 Hours: No Cardiac Arrest within 24 Hours: No Imaging Studies Past 6 Months: Yes Stress Studies Past 6 Months: No Coronary Anatomy Dominant: Right Diagnostic Physicians Name: David Jones MD Status: Elective Closure Device Percutaneous Entry Location: Radial Closure Device: Radial Band Recommendations: PCI without planned CABG Cardiac Cath Procedure Full Procedure Date October 16, 2021 Pre-Procedure Diagnosis Pre-Procedure Diagnosis: Angina AUC Score AUC Score: 8 Post-Procedure Diagnosis Post-Procedure Diagnosis: Severe CAD and Normal Intracardiac Pressures Procedure(s) Performed Procedure(s) Performed: Coronary Angiography and Left Heart Cath Lime Sludge Mixer David Jones MD Manager Mining(s) [place] Estimated Blood Loss Estimated Blood Loss: < 20 ml Medication(s) Medication(s): Fentanyl, Heparin, Lidocaine 1%, Nicardipine and Versed Summary of Findings Procedures: 1. Coronary angiography 2. Left heart catheterization 3. Moderate sedation Indication: 71-year-old gentleman with a history significant for CAD, RCA STEMI, RCA PCI x3, hypertension, and dyslipidemia who presented to [facility] with crescendo anginal symptoms with minimally elevated troponins. Primary enforcement safety officer: Dr. Arenas Coronary angiography: 1. Left main: No significant CAD. 2. Left anterior descending: Proximal LAD 20%. Mid LAD 50 to 70%. Late mid LAD 30%. D1, D2, and D3 without significant CAD. MAXI-3 flow. 3. Circumflex: Mid circumflex 20%. Very small caliber OM1. Small caliber OM 2. Large caliber OM 3 with luminal irregularities. 4. Right coronary artery: RCA is large and dominant. Proximal to mid RCA stents patent but with mild and moderate in-stent restenosis. Within the mid stented portion, 40 to 50% in-stent restenosis and then distally within the stented area, 30%. Proximal RCA 40 to 50%, just proximal to the stent margin. Distal RCA at bifurcation, 80 to 90% with MAXI-[address] branches without significant CAD. Left heart catheterization: 1. Left ventriculography was not performed. 2. LVEDP 2 mmHg. 3. No significant aortic stenosis. Moderate sedation: 1. Sedation start time: 3:07 PM 2. Sedation end time: 3:28 PM Impression: 1. Severe CAD involving distal RCA. 2. Patent RCA stents with mild and moderate in-stent restenosis. 3. Previous mid LAD severe stenosis now appears moderate to severe. 4. Otherwise, mild nonobstructive CAD. 5. Low left-sided filling pressure. 6. No significant aortic stenosis. Plan: 1. Dr. Boothe of interventional cardiology was asked to review images and plans to attempt PCI of distal RCA. 2. Risk factor modification. Hemodynamics Rest Ao:: 110/57 Final Ao: 116/57 LV: 115/0/2 Recommendations Recommendations: PCI without planned CABG Specimens Specimens: None Radiation Exposure (mGy) 1099 mGy. Fluoro time 5 min. Contrast (mls) 70 ml Procedural Complication(s) None Disposition remains in cath lab tech for PCI attempt I attest to the content of the Intraoperative Record and any orders documented therein. Any exceptions are noted below. [facility] Card Cath Procedure Codes Cardiac Catheterization Procedure 1: Cardiovascular Cath Procedures: 34998 Coronaries and LHC (+/-LV) Moderate Sedation Procedure 1: Sedation/Anesthesia: 15624 Mod Sedation by the same physician;Init15 Min Child Age 5 & Up Procedure 2: Sedation/Anesthesia: 33642 Mod Sedation by the same physician; Ea [id number] Minutes PG Care Time/CCT Total # of Minutes Spent Total Time Spent with Patient: Total time spent is greater than 50% in coordination of care (as documented) at patient's floor/unit and/or counseling patient:
--- NOTE | 2021-10-16 16:25 | Cardiology Progress Note ---
Date of Service October 16, 2021 Assessment & Plan (1) Exertional angina: (2) CAD (coronary artery disease): (3) Stented coronary artery: (4) Hypertension, essential: (5) Hyperlipidemia: (6) Elevated troponin: Plan: ASSESSMENT/PLAN: 1. CAD s/p RCA PCI: No further angina. Previous RCA stents x3 in setting of STEMI and new RCA PCI today of distal RCA, which was not previously stented. Underwent distal RCA PCI today. Continue aspirin 81 mg daily indefinitely. Continue Plavix 75 mg daily for at least 1 year, however he has been on it chronically. Continue beta-ani. Continue statin dose as tolerated. Continue calcium channel ani. 2. Exertional angina: No further symptoms during this hospital stay. Underwent PCI of distal RCA on 10/16/2021. 3. Hypertension: Blood pressure has been mildly hypotensive to mildly hypertensive. Consider CHRISTINA-inhibitor, especially if blood pressure warrants further optimization. 4. Dyslipidemia: Has not tolerated higher doses of statins per patient report. Continue pravastatin and Zetia. Most recent LDL at goal. 5. Elevated troponin: Not diagnostic of [place], but slightly elevated. Found to have severe distal RCA CAD. 6. Disposition: Cardiology will continue to follow. On discharge, follow-up with primary green end man, Dr. Arenas. Consider cardiac rehab. Patient care communicated with Dr. Goodwin of the primary hospitalist service. Admission and Anticipated Discharge Date Admission Date: October 15, 2021 Subjective Patient denied any further chest discomfort. Denies shortness of breath. No syncope, near-syncope, palpitations, or edema. Headache has improved while on nitroglycerin. Physical Exam Physical Exam: Gen.: No acute distress. Alert and oriented. HEENT: Anicteric sclera. Neck: No JVD. Cardiac: Regular. Normal S1-S2. No murmurs, rubs, or gallops. Pulmonary: Clear to auscultation bilaterally without wheezes, rales, or rhonchi. Abdomen: Soft, nontender, nondistended, with normoactive bowel sounds. No bruits noted. Extremities: 2+ radial pulses bilaterally. 2+ posterior tibialis pulses bilaterally. No edema or cyanosis. Psychiatric: Affect appears appropriate. Results & Data ([facility]) Vital Signs (Past 12 Hours) Vital Signs Temp Pulse Pulse Resp BP BP Pulse Ox 10/16/21 14:22 64 17 157/91 H 95 10/16/21 11:18 36.5 C 65 18 110/67 96 10/16/21 08:21 62 10/16/21 07:01 36.5 C 76 18 98/71 L 95 10/16/21 04:31 36.8 C 81 18 96/68 L 99 Laboratory Results Laboratory Results - last 24 hr 10/15/21 10/15/21 10/15/21 16:51 23:12 23:15 APTT 35.5 H PTT Ratio 1.3 Activ Coag Time Kaolin Troponin I 0.06 H* 0.05 H* 10/16/21 10/16/21 07:43 15:12 APTT 52.4 H* PTT Ratio 1.9 Activ Coag Time Kaolin 166 H Troponin I Diagnostic Findings Telemetry personally reviewed: Sinus rhythm. No arrhythmia. Echo 10/16/2021: Normal LV size, wall motion, systolic function. EF 55-60%. Mild MR. Normal RVSP. Cardiac catheterization 10/16/2021: Coronary angiography: 1. Left main: No significant CAD. 2. Left anterior descending: Proximal LAD 20%. Mid LAD 50 to 70%. Late mid LAD 30%. D1, D2, and D3 without significant CAD. MAXI-3 flow. 3. Circumflex: Mid circumflex 20%. Very small caliber OM1. Small caliber OM 2. Large caliber OM 3 with luminal irregularities. 4. Right coronary artery: RCA is large and dominant. Proximal to mid RCA stents patent but with mild and moderate in-stent restenosis. Within the mid stented portion, 40 to 50% in-stent restenosis and then distally within the stented area, 30%. Proximal RCA 40 to 50%, just proximal to the stent margin. Distal RCA at bifurcation, 80 to 90% with MAXI-[address] branches without significant CAD. Left heart catheterization: 1. Left ventriculography was not performed. 2. LVEDP 2 mmHg. 3. No significant aortic stenosis. PCI: 1. Successful PCI of distal RCA with single drug-eluting stent (2.75 x 15 mm Xience; postdilated with 3.0 NC). Medications Administered Current Inpatient Medications Acetaminophen (Acetaminophen 325 Mg Tab) 650 mg PO Q4H PRN PRN Reason: Pain or Fever Stop: 04/14/22 16:35 Amlodipine Besylate (Amlodipine Besylate 5 Mg Tab) 5 mg PO [facility] Stop: 11/15/21 08:59 Last Admin: 10/16/21 08:33 Dose: Not Given Documented by: Aspirin (Aspirin 81 Mg Ectab) 81 mg PO [facility] Stop: 11/15/21 08:59 Last Admin: 10/16/21 08:33 Dose: 81 mg Documented by: Clopidogrel Bisulfate (Clopidogrel Bisulfate 75 Mg Tab) 75 mg PO [facility] Stop: 11/15/21 08:59 Last Admin: 10/16/21 08:33 Dose: 75 mg Documented by: Ezetimibe (Ezetimibe 10 Mg Tablet) 10 mg PO [facility] Stop: 11/15/21 08:59 Last Admin: 10/16/21 08:33 Dose: 10 mg Documented by: Heparin Sodium/Dextrose (Heparin Sodium/Dextrose) 25,000 units in 500 mls @ 20 mls/hr IV .Q24H [facility]; Protocol Stop: 11/14/21 14:44 Last Titration: 10/16/21 01:45 Dose: 1,000 units/hr, 20 mls/hr Documented by: Metoprolol Succinate (Metoprolol Succ 50mg Ext Rel Tab) 100 mg PO [facility] Stop: 11/15/21 08:59 Last Admin: 10/16/21 08:33 Dose: Not Given Documented by: Nitroglycerin (Nitroglycerin 2% Ointment 30gm Tube) 0.5 inch EXT Q6H [facility] Stop: 11/14/21 14:14 Last Admin: 10/16/21 08:33 Dose: Not Given Documented by: Nitroglycerin (Nitroglycerin Sl 0.4 Mg/Tab Tab) 0.4 mg SL Q5M PRN PRN Reason: chest pain Stop: 11/14/21 16:35 Ondansetron HCl (Ondansetron Inj 2 Mg/Ml 2 Ml Vial) 4 mg IV Q6H PRN PRN Reason: Nausea Stop: 11/14/21 16:35 Pantoprazole Sodium (Pantoprazole 40 Mg Tab) 40 mg PO [facility] Stop: 11/15/21 08:59 Last Admin: 10/16/21 08:33 Dose: 40 mg Documented by: Polyethylene Glycol (Polyethylene (Miralax) 17 Gm Pack) 17 gm PO DAILY PRN PRN Reason: Constipation Stop: 11/14/21 16:35 Pravastatin Sodium (Pravastatin Sod 10 Mg Tab) 5 mg PO QDL [facility] Stop: 11/15/21 11:29 Last Admin: 10/16/21 11:52 Dose: 5 mg Documented by: Tamsulosin HCl (Tamsulosin Hcl 0.4 Mg Cap) 0.4 mg PO [facility] Stop: 11/14/21 20:59 Last Admin: 10/15/21 20:50 Dose: 0.4 mg Documented by: Vitamin D (Cholecalciferol 1,000 Units 25 Mcg Tab) 2,000 units PO [facility] Stop: 11/14/21 20:59 Last Admin: 10/15/21 20:50 Dose: 2,000 units Documented by: PG Care Time/CCT Total # of Minutes Spent Total Time Spent with Patient: Total time spent is greater than 50% in coordination of care (as documented) at patient's floor/unit and/or counseling patient: Coding Level of Care Code 90668 Subseq Hosp Care Lvl 3 Diagnoses Exertional angina I20.8 CAD (coronary artery disease) I25.10 Stented coronary artery Z95.5 Hypertension, essential I10 Hyperlipidemia E78.5 Elevated troponin R77.8
[2021-10-16] MEDS ORDERED: CLOPIDOGREL BISULFATE 300 MG TAB ONE (16:47)
[2021-10-16] MEDS ORDERED: ONDANSETRON INJ 2 MG/ML 2 ML VIAL IV PRN (16:55)
[2021-10-16] MEDS ORDERED: SODIUM CHLORIDE 0.9% 1000ML 1,000 ML IV SCH (17:00)
--- NOTE | 2021-10-16 17:09 | Cardiac Catheterization ---
[facility] Data: [employer] Cardiac Status Clinical evaluation leading to the procedure CAD Presenation: Non STEMI Anginal Classification: CCS IV Heart Failure: No Cardiogenic Shock within 24 Hours: No Cardiac Arrest within 24 Hours: No Imaging Studies Past 6 Months: Yes Stress Studies Past 6 Months: No Diagnostic Physicians Name: Shamir Boothe MD Status: Elective Closure Device Percutaneous Entry Location: Radial Closure Device: Radial Band Recommendations: PCI without planned CABG PCI Indication: PCI for high risk Non-TOSHIA Lesion Segment Name: Distal RCA Culprit Artery: Yes Stenosis Prior to Rx (%): 90 Chronic Total Occlusion: No IVUS: No FFR: No Pre-Procedure MAXI Flow: 3 Previously Treated Lesion: No Lesion Complexity: Non-High/Non-C Lesion Length (mm): 12 Thrombus Present: Yes Bifurcation Lesion: Yes Guidewire Across Lesion: Stenosis Post-Procedure (%): 0 Post-Procedure MAXI Flow: 3 Devices(s) Deployed: Yes Yes Intraprocedure Events Significant Disection: No Perforation: No Cardiac Cath Procedure Full Procedure Date October 16, 2021 Pre-Procedure Diagnosis Pre-Procedure Diagnosis: Non STEMI AUC Score AUC Score: 8 Post-Procedure Diagnosis Post-Procedure Diagnosis: Severe CAD and Successful PCI Procedure(s) Performed Procedure(s) Performed: Coronary Angiography and Drug Eluting Stent Certification And Selection Specialist Shamir Boothe MD Assistant Reading Teacher(s) [place] Estimated Blood Loss Estimated Blood Loss: < 20 ml Medication(s) Medication(s): Clopidogrel, Fentanyl, Heparin, Lidocaine 1%, Nicardipine, Nitroglycerin and Versed Summary of Findings Indication: NSTEMI Access: 6 Fr right radial artery Catheters: AL-1 guide Findings: For full details of patient's coronary angiography please see cath report dictated by Dr. Jones. Briefly, patient found to have severe distal RCA disease. Decision to proceed with PCI. -- PCI -- Antithrombotic therapy: Heparin, clopidogrel Procedure: RCA cannulated with AL-1 guide [employer] Strip [employer]isher 50 wire passed across lesion into distal vessel Distal RCA lesion predilated with 2.5 compliant balloon Whisper wire placed into distal PDA Dilated lesion stented with 2.75 x 15 mm Xience drug-eluting stent across takeoff of PDA Stent post-dilated with 3.0 noncompliant balloon IC vasodilators administered for spasm Post procedure MAXI 3 flow, stent well expanded with minimal residual stenosis. No branch vessel compromise and no other apparent cardiac complications. Arterial Closure: TR band Summary: 1. Successful PCI of distal RCA with single drug-eluting stent (2.75 x 15 mm Xience; postdilated with 3.0 NC). Recommendations: Reloaded with clopidogrel 300 mg in [employer] Continue dual-antiplatelet therapy for at least 1 year Continue statin, and ASCVD risk factor modification Consult cardiac Rehab Hemodynamics Rest Ao:: 109/58/77 Final Ao: 105/63/80 LV: -- Recommendations Recommendations: PCI without planned CABG Specimens Specimens: None Radiation Exposure (mGy) 2441 Contrast (mls) 125 Fluids (cc crystalloids) Fluids (cc crystalloids): 151 Drains Drains: None Anesthesia Moderate (2467-3110) Procedural Complication(s) None Disposition PCU I attest to the content of the Intraoperative Record and any orders documented therein. Any exceptions are noted below. [facility] Card Cath Procedure Codes Moderate Sedation Procedure 2: Sedation/Anesthesia: 74860 Mod Sedation by the same physician; Ea [id number] Minutes Stenting Procedure 1: Cardiovascular Stent Procedures: 49290 Perc transcatheter placement of intracoronary stent(s), with ang PG Care Time/CCT Total # of Minutes Spent Total Time Spent with Patient: Total time spent is greater than 50% in coordination of care (as documented) at patient's floor/unit and/or counseling patient:
[2021-10-16] MEDS: HEPARIN SODIUM/DEXTROSE 25,000 UNITS/500 ML BAG IV SCH (17:22)
--- NOTE | 2021-10-16 20:11 | Hospitalist Progress Note ---
Date of Service October 16, 2021 Assessment & Plan (1) Chest pain: Plan: 2nd angina. Minimally positive troponin while here. Symptoms resolved with nitrates, heparin infusion, DAPT, and other usual cardiac meds. s/p cath today by Esteban Jones & Tl - see below. (2) CAD (coronary artery disease): Plan: Prior h/o acute inferior and posterior lateral [place] in 2013, s/p 3 SHOBHA in RCA. Other major vessels with CAD as well. s/p cath today - 90% distal RCA lesion - felt to be culprit vessel for presenting symptoms - s/p SHOBHA by Dr Boothe. Other vessels - L Cx, LAD - similar or slightly better than in 2014. Medical management of these. Continue statin, DAPT (plavix + ASA), metoprolol, amlodipine. Of note - reloaded with plavix in director labor standards. Check lipids, TSH, a1c in am for risk factor modification. Recheck BMP in am for stability of creatinine. (3) Hyperlipidemia: Plan: Continue pravastatin 5 mg daily and ezetimibe 10 mg daily. Recheck lipids in am. Ideally should be on evidence-based statin therapy (crestor or lipitor). (4) Hypertension, essential: Plan: Continue amlodipine 5 mg daily and metoprolol succ 100 mg daily. Controlled. (5) Urinary retention due to benign prostatic hyperplasia: Plan: No issues. Continue Flomax. (6) Impaired fasting glucose: Plan: recheck a1c in am (7) GERD without esophagitis: Plan: Cont PPI Plan: updated at bedside prior to patient going to cath Admission and Anticipated Discharge Date Admission Date: October 15, 2021 Subjective pt w/o complaints during AM rounds he is scheduled for heart cath this afternoon w/ Dr Jones no further chest pain no dyspnea no orthopnea he feels "weak" tele overnight wnl Review of Systems Review of Systems: gen - good appetite; fatigue noted cv - no chest pain pulm - no cough GI - no Nausea or emesis Physical Exam Physical Exam: gen - NAD, pleasant neck - no JVD mouth - MMM heart - RRR, s1 s2, no murmur lungs - CTA b/l abd - soft NT ND BS+ ext - no edema, pulses 2+ b/l Results & Data Results & Data ([facility]) Vital Signs (Past 12 Hours) Vital Signs Temp Pulse Pulse Pulse Resp BP Pulse Ox 10/16/21 18:30 76 106/74 94 10/16/21 18:15 83 137/69 10/16/21 17:41 85 20 137/65 95 10/16/21 17:15 36.4 C L 61 20 138/82 97 10/16/21 17:00 56 L 17 145/78 H 97 10/16/21 16:47 53 L 17 113/71 97 10/16/21 14:22 64 17 157/91 H 95 10/16/21 11:18 36.5 C 65 18 110/67 96 10/16/21 08:21 62 Laboratory Results Laboratory Results - last 24 hr 10/15/21 10/15/21 10/16/21 23:12 23:15 07:43 APTT 35.5 H 52.4 H* PTT Ratio 1.3 1.9 Activ Coag Time Kaolin Troponin I 0.05 H* 10/16/21 10/16/21 15:12 16:32 APTT PTT Ratio Activ Coag Time Kaolin 166 H 261 H Troponin I Diagnostic Findings echo - preserved EF, normal valve function, no regional WMAs PG Care Time/CCT Total # of Minutes Spent Total Time Spent with Patient: Total time spent is greater than 50% in coordination of care (as documented) at patient's floor/unit and/or counseling patient: Coding Level of Care Code 70870 Subseq Hosp Care Lvl 2 Diagnoses Chest pain R07.9 CAD (coronary artery disease) I25.10 Hyperlipidemia E78.5 Hypertension, essential I10 Urinary retention due to benign prostatic hyperplasia N40.1; R33.8 Impaired fasting glucose R73.01 GERD without esophagitis K21.9
[2021-10-16] MEDS: TAMSULOSIN HCL 0.4 MG CAP PO SCH (21:09)
[2021-10-16] MEDS: CHOLECALCIFEROL 1,000 UNITS 25 MCG TAB PO SCH (21:09)
--- NOTE | 2021-10-16 21:31 | Electrocardiogram Report ---
Test Reason : Blood Pressure : / mmHG Vent. Rate : 061 BPM Atrial Rate : 061 BPM P-R Int : 180 ms QRS Dur : 132 ms QT Int : 442 ms P-R-T Axes : 010 -64 -10 degrees QTc Int : 444 ms Normal sinus rhythm Right bundle branch block Left anterior fascicular block Bifascicular block Inferior infarct , age undetermined Abnormal ECG When compared with ECG of 15-OCT-2021 11:15, Inverted T waves have replaced nonspecific T wave abnormality in Inferior leads Confirmed by David Jones ([id number]) on 10/16/2021 9:31:21 PM Referred By: Nandini Temple Confirmed By:David Jones
[2021-10-17 07:37] LABS: BUN Creatinine Ratio 17.3 (10-20); Chol HDL Ratio 3.4 (0-5); Creatinine Clr Calc Pharmacy 95.4 ml/min; Est GFR (African American) 108.5 ml/min; Est GFR (Non-African American) 93.6 ml/min; Estimated Average Glucose 111 mg/dl; Hemoglobin A1C 5.5 % (4.5-5.6); Potassium 3.8 mmol/L (3.5-5.1)
[2021-10-17] MEDS: CLOPIDOGREL BISULFATE 75 MG TAB PO SCH (08:32)
[2021-10-17] MEDS: amLODIPine BESYLATE 5 MG TAB PO SCH (08:32)
[2021-10-17] MEDS: ASPIRIN 81 MG ECTAB PO SCH (08:32)
[2021-10-17] MEDS: PANTOprazole 40 MG TAB PO SCH (08:32)
[2021-10-17] MEDS: EZETIMIBE 10 MG TABLET PO SCH (08:33)
[2021-10-17] MEDS: METOPROLOL SUCC 50MG EXT REL TAB PO SCH (08:33)
--- NOTE | 2021-10-17 09:05 | Cardiology Progress Note ---
Date of Service October 17, 2021 Assessment & Plan (1) Exertional angina: (2) CAD (coronary artery disease): (3) Stented coronary artery: (4) Hypertension, essential: (5) Hyperlipidemia: (6) Elevated troponin: Plan: ASSESSMENT/PLAN: 1. CAD s/p RCA PCI: No further angina. Feels much better following distal RCA stent. PreviousRCA stents x3 in setting of STEMI and new RCA PCI 10/16/21 of distal RCA. Continue aspirin 81 mg daily indefinitely. Continue Plavix 75 mg daily for at least 1 year, however he has been on it chronically. Continue beta-ani. Continue statin dose as tolerated. Continue calcium channel ani. 2. Exertional angina: No further symptoms during this hospital stay. Underwent PCI of distal RCA on 10/16/2021. Encouraged ambulation in the hallway prior to discharge. 3. Hypertension: Blood pressure well controlled. 4. Dyslipidemia: Has not tolerated higher doses of statins per patient report. Continue pravastatin and Zetia. Most recent LDL at goal. 5. Elevated troponin: Not diagnostic of [place], but slightly elevated. Found to have severe distal RCA CAD. 6. Disposition: Can be discharged from a cardiology standpoint but first encouraged ambulation in the hallway. On discharge, follow-up with primary acid recovery operator, Dr. Arenas. Consider cardiac rehab. Patient care communicated with Dr. Goodwin of the primary hospitalist service. Admission and Anticipated Discharge Date Admission Date: October 15, 2021 Subjective He was seen this morning in his hospital room. He feels very well. He states that he feels better following PCI. Has not had any chest discomfort, shortness of breath, syncope, near-syncope, palpitations, or bleeding. He has not yet ambulated in the hallway but states that he feels as though something has been lifted from his chest. Review of systems: As above. Physical Exam Physical Exam: Gen.: No acute distress. Alert and oriented. HEENT: Anicteric sclera. Neck: No JVD. Cardiac: Regular. Normal S1-S2. No murmurs, rubs, or gallops. Pulmonary: Clear to auscultation bilaterally without wheezes, rales, or rhonchi. Abdomen: Soft, nontender, nondistended, with normoactive bowel sounds. No bruits noted. Extremities: 2+ radial pulses bilaterally. Right radial cath site is clean, dry, and intact without erythema or discharge. No hematoma. 2+ posterior tibialis pulses bilaterally. No edema or cyanosis. Psychiatric: Affect appears appropriate. Results & Data ([facility]) Vital Signs (Past 12 Hours) Vital Signs Temp Pulse Pulse Pulse Resp BP Pulse Ox 10/17/21 08:34 90 10/17/21 08:26 57 L 10/17/21 07:22 37 C 64 16 124/93 95 10/17/21 04:57 36.9 C 68 18 125/72 94 10/17/21 00:25 36.7 C 61 16 105/65 96 10/16/21 22:19 60 Laboratory Results Laboratory Results - last 24 hr 10/16/21 10/16/21 10/17/21 15:12 16:32 06:39 Activ Coag Time Kaolin 166 H 261 H Sodium Potassium Chloride Carbon Dioxide Anion Gap BUN Creatinine Est Cr Clr Drug Dosing Est GFR ( Amer) Est GFR (Non-Af Amer) BUN/Creatinine Ratio Glucose Estimat Average Glucose 111 Hemoglobin A1c 5.5 Calcium Triglycerides Cholesterol LDL Cholesterol, Calc VLDL Cholesterol, Calc HDL Cholesterol Cholesterol/HDL Ratio TSH 10/17/21 10/17/21 06:39 06:39 Activ Coag Time Kaolin Sodium 139 Potassium 3.8 Chloride 105 Carbon Dioxide 27 Anion Gap 7 BUN 13 Creatinine 0.75 Est Cr Clr Drug Dosing 95.4 Est GFR ( Amer) 108.5 Est GFR (Non-Af Amer) 93.6 BUN/Creatinine Ratio 17.3 Glucose 96 Estimat Average Glucose Hemoglobin A1c Calcium 9.0 Triglycerides 97 Cholesterol 141 LDL Cholesterol, Calc 80 VLDL Cholesterol, Calc 19 HDL Cholesterol 42 Cholesterol/HDL Ratio 3.4 TSH 0.544 Diagnostic Findings Telemetry personally reviewed: Sinus rhythm. No arrhythmia. Medications Administered Current Inpatient Medications Acetaminophen (Acetaminophen 325 Mg Tab) 650 mg PO Q4H PRN PRN Reason: Pain or Fever Stop: 11/14/21 16:35 Amlodipine Besylate (Amlodipine Besylate 5 Mg Tab) 5 mg PO [facility] Stop: 11/15/21 08:59 Last Admin: 10/17/21 08:32 Dose: 5 mg Documented by: Aspirin (Aspirin 81 Mg Ectab) [facility]: 11/15/21 08:59 Last Admin: 10/17/21 08:32 Dose: 81 mg Documented by: Clopidogrel Bisulfate (Clopidogrel Bisulfate 75 Mg Tab) 75 mg PO [facility] Stop: 11/15/21 08:59 Last Admin: 10/17/21 08:32 Dose: 75 mg Documented by: Ezetimibe (Ezetimibe 10 Mg Tablet) 10 mg PO [facility] Stop: 11/15/21 08:59 Last Admin: 10/17/21 08:33 Dose: 10 mg Documented by: Metoprolol Succinate (Metoprolol Succ 50mg Ext Rel Tab) 100 mg PO [facility] Stop: 11/15/21 08:59 Last Admin: 10/17/21 08:33 Dose: 100 mg Documented by: Nitroglycerin (Nitroglycerin Sl 0.4 Mg/Tab Tab) 0.4 mg SL Q5M PRN PRN Reason: chest pain Stop: 11/14/21 16:35 Ondansetron HCl (Ondansetron Inj 2 Mg/Ml 2 Ml Vial) 4 mg IV Q6H PRN PRN Reason: Nausea Stop: 11/14/21 16:35 Pantoprazole Sodium (Pantoprazole 40 Mg Tab) 40 mg PO [facility] Stop: 11/15/21 08:59 Last Admin: 10/17/21 08:32 Dose: 40 mg Documented by: Polyethylene Glycol (Polyethylene (Miralax) 17 Gm Pack) 17 gm PO DAILY PRN PRN Reason: Constipation Stop: 11/14/21 16:35 Pravastatin Sodium (Pravastatin Sod 10 Mg Tab) 5 mg PO QDL [facility] Stop: 11/15/21 11:29 Last Admin: 10/16/21 11:52 Dose: 5 mg Documented by: Tamsulosin HCl (Tamsulosin Hcl 0.4 Mg Cap) 0.4 mg PO [facility] Stop: 11/14/21 20:59 Last Admin: 10/16/21 21:09 Dose: 0.4 mg Documented by: Vitamin D (Cholecalciferol 1,000 Units 25 Mcg Tab) 2,000 units PO [facility] Stop: 11/14/21 20:59 Last Admin: 10/16/21 21:09 Dose: 2,000 units Documented by: PG Care Time/CCT Total # of Minutes Spent Total Time Spent with Patient: Total time spent is greater than 50% in coordination of care (as documented) at patient's floor/unit and/or counseling patient: Coding Level of Care Code 26358 Subseq Hosp Care Lvl 3 Diagnoses Exertional angina I20.8 CAD (coronary artery disease) I25.10 Stented coronary artery Z95.5 Hypertension, essential I10 Hyperlipidemia E78.5 Elevated troponin R77.8
--- NOTE | 2021-10-17 10:57 | Discharge Summary ---
Date of Service October 17, 2021 Admission HPI Per Admitting Provider Patient 71 y/o M with past medical history of CAD s/p MT in 2013 with SHOBHA, hypertension, hyperlipidemia, and hiatal hernia who presents today at the referral of his PCP with several episodes of chest pain and shortness of breath over the past month. He and his walk 2.5 miles several times a week, however for the past month, he notes he has been more short of breath than usual with these walks. He initially attributed this to air quality, as his also experienced similar symptoms, however he has since noticed a decline in energy levels. He also reports feeling slightly short of breath while walking up his stairs this morning. Additionally, over the past two weeks, he has begun experiencing episodes of generalized chest pain with activity, specifically noting it happened once while walking and was associated with chest pain across his whole chest and abdomen, associated with b/l numbness in both arms as well as nausea. It was alleviated with rest, and he was able to continue his walk without further symptoms. Last week, during a snow storm, he was shoveling snow and experienced an episode of chest pain 10 minutes into shoveling, similar to the one listed above. He chewed a baby aspirin and rested for about 20 minutes before continuing to shovel, symptom free. He states this chest pain does not feel similar to the pain he experienced in 2014 when he had an MT, but is concerned as he does not ever have chest pain at rest or activity, and also typically is very active and is bothered by his fatigue. His chest pain does not radiate to neck/jaw/back, is not affected by position, is not exacerbated with respirations, is not associated with meals. He denies fever/chills, myalgias, palpitations, dizziness, SOB at rest, cough, vomiting, change in bowel movements, injury to chest wall, or edema. He is currently without chest pain. Discharge Exam gen - NAD, pleasant neck - no JVD mouth - MMM heart - RRR, s1 s2, no murmur lungs - CTA b/l abd - soft NT ND BS+ ext - no edema, pulses 2+ b/l Discharge Data Allergies Allergy/AdvReac Type Severity Reaction Status Date / Time Sulfa (Sulfonamide Allergy Intermediate RASH Verified 10/15/21 13:01 Antibiotics) Consultations 10/15/21 14:03 ED Decision to Admit Stat 10/15/21 16:36 Consult Cardiology Routine 10/16/21 17:00 Consult Cardiac Rehabilitation Routine Procedures Performed Operation Date: 10/16/21 12:30 Actual Procedures p Cineradiography w/Routine Exam - Sunny Boothe MD p Cath, Left with Cors and Vent - David Jones MD s Drug Eluting Stent SGl Vessel - Sunny Boothe MD Ordered Studies 10/16/21 06:40 CL Cath Imgs for PACS use only Routine Hospital Course (1) Chest pain: 2nd angina. Minimally positive troponin while here. Symptoms resolved with nitrates, heparin infusion, DAPT, and other usual cardiac meds. s/p cath today by Esteban Jones & Tl - see below. (2) CAD (coronary artery disease): Prior h/o acute inferior and posterior lateral MT in 2013, s/p 3 SHOBHA in RCA. Other major vessels with CAD as well. s/p cath today - 90% distal RCA lesion - felt to be culprit vessel for presenting symptoms - s/p SHOBHA by Dr Boothe. Other vessels - L Cx, LAD - similar or slightly better than in 2014. Medical management of these. Continue statin, DAPT (plavix + ASA), metoprolol, amlodipine. Of note - reloaded with plavix in blood and plasma laboratory assistant. Check lipids, TSH, a1c in am for risk factor modification. Recheck BMP in am for stability of creatinine. (3) Hyperlipidemia: Continue pravastatin 5 mg daily and ezetimibe 10 mg daily. Recheck lipids in am. Ideally should be on evidence-based statin therapy (crestor or lipitor). (4) Hypertension, essential: Continue amlodipine 5 mg daily and metoprolol succ 100 mg daily. Controlled. (5) Urinary retention due to benign prostatic hyperplasia: No issues. Continue Flomax. (6) Impaired fasting glucose: recheck a1c in am (7) GERD without esophagitis: Cont PPI updated at bedside prior to patient going to cath Discharge Plan Discharge Items Patient Disposition: Home - Self-Care Reason For Visit: CHEST PAIN Discharge Diagnosis: Chest pain - due to your coronary artery disease. Heart catheterization on 10/16/21 showed a 80-90% blockage in your right coronary artery. This was opened with a new stent. Your old stents from 2013 are still open/patent. Activity: Per Instructions section Sexual Activity: Wait until after follow-up appointment Non-emergency contact: Primary Care Provider and Parking Regulation Enforcement Officer Call non-emergency contact if: you have any medication questions, your symptoms worsen and you have a fever Follow-up/Referrals: Stevie Arenas Jr, MD, [facility] [Physician] - (1 week ) Nandini Temple MD [Primary Care Provider] - (1-2 weeks) Diet: Heart Healthy Add Attending Provider Instructions: Mr Whitten, You were admitted to the hospital after having had multiple episodes of chest pain in the week leading up to your stay here. The episodes were very suspicious that it was "angina" - a word we use for chest pain that is coming from your heart. We placed you on heparin infusion and gave you nitroglycerin. Your pain did resolve. An echocardiogram performed showed good heart function/pumping ability - in fact, the heart looked overall stronger than several years ago. A heart catheterization was performed on 10/16 by Esteban Jones and Tl. The catheterization revealed a mild amount of plaque build-up in the previously placed stents in the right coronary artery from 2013. There was a new lesion in the right coronary artery just beyond the stents that was 80-90% blocked. It was felt that this was the "culprit" lesion causing your pain. You do have blockages in the other 2 main heart vessels but these are similar to [address] Boothe placed a new stent across the 80-90% blockage. This improved the blood flow in that artery. We performed a cholesterol panel on 10/17. Your triglycerides were 97 (goal is <150). Your LDL - also known as "bad cholesterol" - was 80 (goal is <70). Your HDL - also known as "good cholesterol" - was 42 (goal is >45). Recommendations for your cholesterol - 1. INCREASE your pravastatin to 10mg daily. Take a full tablet every day. 2. Continue your zetia (ezetimibe) 10mg as previous. 3. Continue your coenzyme q10 as previous. 4. Take an [id number] fiber supplement such as Metamucil daily. This comes in powder form, capsules, and wafers. 5. Focus on increasing the fiber in your diet as fiber does lower bad cholesterol. See handout on fiber. 6. Have a repeat cholesterol panel in about 3 months. I have also sent in a new prescription for nitroglycerin tablets to be used in an emergency for any symptoms of a heart attack including chest pain, shortness of breath, nausea (especially if associated with chest pain or shortness of breath), etc. Activity - please see the instructions below. Simply put - take it easy until you see Dr Arenas; no heavy exertional activities. Walking is fine. Follow-up - see separate section Return to [facility] if - * you have to take nitroglycerin tablets for chest pain * you have chest pain or abdominal pain that is concerning to you * you have any concerns regarding your right wrist where the heart cath was performed * you have worsening shortness of breath * any other concerns It was our pleasure caring for you at [facility]! Take good care, Dr Goodwin Addtl Chief Learning Officer Provider Instructions: ACTIVITY RECOMMENDATIONS following your heart catheterization: Excess manipulation of the RIGHT wrist should be avoided for the next 24-48 hours. * No lifting over 2 pounds (approximately a 1/2 gallon of milk) with the utilized arm for 24 hours. * Keep the site of the procedure covered with a bandage for 24 hours. *You may shower the day after the procedure. HOWEVER, do not take a tub bath or submerge the puncture site in water for the next 3 days (don't wash dishes, do not swim, etc). *Do not operate any motorized equipment for 3 days. SPECIAL CARE INSTRUCTIONS: The site may be slightly bruised and sore following your procedure. Should any of the following occur, contact the Dr. who performed your procedure. 1. Redness/inflammation, swelling, chills, or fever, or colored drainage at procedure site within 3-7 days after your procedure. 2. Coldness, discoloration, ongoing numbness, severe pain, or swelling. Expect mild tingling of hand and tenderness at the puncture site for up to three days. If this persists beyond three days, or other symptoms develop, notify the Dr. who performed your procedure. BLEEDING: If the procedure site on your wrist begins to bleed, do not panic 1. Place 1 or 2 fingers firmly just slightly above the insertion site to stop the bleeding. You may be able to feel your pulse as you hold pressure. 2. Lift your finger after 5 minutes to see if the bleeding has stopped. 3. Once the bleeding has stopped, gently wipe the wrist area clean with a bandage. * If the bleeding from your wrist does not stop after 10 minutes, or if there is a large amount of bleeding or spurting, call 911 (do not drive yourself to the hospital). SKIN IRRITATION: * You may experience some redness and/or swelling in the area where radiation was administered. If any skin irritation occurs, please contact your family physician. FOLLOW UP VISIT: 1. Follow up with Dr. Arenas in approx 1 week following discharge. 2. Keep any any scheduled doctor appointments. Pending Studies at Discharge: No Stand-Alone Forms: My [facility], Smoking Cessation Medications and DC Order Prescriptions: Continued multivitamin Tablet 1 tab PO QAM RF: 0 coenzyme Q10 [CoQ-10] 100 mg Capsule 100 mg PO QDL RF: 0 cholecalciferol (vitamin D3) [Vitamin D3] 50 mcg (2,000 unit) Capsule 50 mcg PO HS RF: 0 metoprolol succinate 100 mg tablet extended release 24 hr 100 mg PO QAM RF: 0 clopidogrel [Plavix] 75 mg tablet 75 mg PO QAM RF: 0 amlodipine 5 mg tablet 5 mg PO QAM RF: 0 aspirin 81 mg tablet,delayed release (DR/EC) 81 mg PO QAM RF: 0 tamsulosin [Flomax] 0.4 mg capsule 0.4 mg PO HS RF: 0 pantoprazole 40 mg tablet,delayed release (DR/EC) 40 mg PO QAM RF: 0 ezetimibe 10 mg tablet 10 mg PO QAM RF: 0 nitroglycerin 0.4 mg tablet, sublingual 0.4 mg SL Q5M PRN (Reason: chest pain) Qty: 1 RF: 0 Changed pravastatin 10 mg tablet 10 mg PO QDL Qty: 0 RF: 0 Discharge Orders: Discharge Order (Routine); Ordered 10/17/21 Ordered By: Teja Dickens/Other Patient Handouts: Eating a High-Fiber Diet, Cholesterol Lifestyle Changes Admission Data Admit Date/Time: 10/15/21 13:23 Attending Provider: Teja Goodwin Admit Provider: Teja Goodwin Primary Care Provider: Nandini Temple Other Providers: Teja Goodwin ; David Jones Coding Diagnoses Chest pain R07.9 CAD (coronary artery disease) I25.10 Hyperlipidemia E78.5 Hypertension, essential I10 Urinary retention due to benign prostatic hyperplasia N40.1; R33.8 Impaired fasting glucose R73.01 GERD without esophagitis K21.9
[2021-10-17] MEDS: PRAVASTATIN SOD 10 MG TAB PO SCH (11:10)
--- NOTE | 2021-10-18 12:30 | Electrocardiogram Report ---
Test Reason : Blood Pressure : / mmHG Vent. 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
== END 2021-10-17 12:15 | disposition home or self-care (01) | DRG 247 ==
LOC: ED 10:55 → 2W 13:23 → 2S 10-16 14:40